=== PATIENT | female | born 1950 | race Caucasian/White ===

== ENCOUNTER → 2017-01-29 | Outpatient (CLI) | payer OTHER ==
--- NOTE | 2017-01-30 08:09 | MR ---
EXAMINATION TYPE: MR foot RT wo/w con DATE OF EXAM: 01/29/2017 COMPARISON: NONE HISTORY: Right Ankle Pain and Swelling for 2 years per patient, Lateral side swelling/lump marked CONTRAST: Standard multiplanar, multisequence MRI departmental protocol utilizing 15 mL intravenous MultiHance gadolinium contrast. FINDINGS: Exam is noted suboptimal as is ordered as MRI foot study but area of clinical concern is at level of distal fibular diaphysis in the right ankle. Vitamin E marker is placed at level of clinical concern lateral aspect posteriorly on coronal image 3 6 and axial image 22. This is at level of the peroneus tendons. Peroneus tendons are intact without a bnormal signal or thickening identified. At this level no worrisome solid or cystic mass or fluid col lection is seen. Visualized Achilles tendon is intact. Visualized flexor tendons posterior medially are intact and fel t within normal limits. Visualized extensor tendons anteriorly are intact. Ankle mortise symmetry is maintained. No significant soft tissue swelling is seen. There is small posterior tibiotalar joint effusion. Normal sinus tarsi fat is seen. Hindfoot articula tions are maintained. No suspicious edema is seen. No suspicious enhancement is noted. Midfoot and forefoot structures show satisfactory alignment. There is some flexion in the toes noted. There is slight hallux valgus positioning first metatarsophalangeal joint. A Martínez's toe is present . IMPRESSION: Unremarkable study, no significant finding is seen to account for patient's symptoms
== END | disposition home or self-care (01) ==
LOC: RADMRIMAIN 19:53
PROVIDERS: ATTEND Family Medicine
DX: R22.41 Localized swelling, mass and lump, right lower limb (principal)
CPT/HCPCS: 73720; A9577

== ENCOUNTER → 2017-02-25 | Outpatient (CLI) | payer OTHER ==
--- NOTE | 2017-02-27 00:03 | MR ---
EXAMINATION TYPE: MR wrist LT wo con DATE OF EXAM: 02/25/2017 COMPARISON: NONE HISTORY: LOCALIZIED SWELLING MASS AND LUMP Standard multiplanar, multisequence MRI departmental protocol Multiplanar, multisequence images of the left wrist were acquired. FINDINGS: There are small millimeter sized areas of fluid signal in the mid capitate and proximal yaron ate on the T2-weighted images. There is a mild wrist joint effusion. There is narrowing of the radioc arpal joint space. There is intact flexor and extensor tendons of the wrist. I see no fracture line. There is no evidenc e of avascular necrosis. Distal radius and ulna appear intact. There is a 1 cm area of minimal soft t issue edema on the dorsum of the carpus posterior to the lunate and capitate. There is no sign of sof t tissue mass. IMPRESSION: Mild osteoarthritis at the radiocarpal joint. Wrist joint effusion. Small degenerative cysts in the c apitate and lunate. No fracture seen. Mild osteoarthritis at the first carpometacarpal joint. Minimal soft tissue edema on the dorsum of the carpus.
== END | disposition home or self-care (01) ==
LOC: RADMRIMAIN 16:33
PROVIDERS: ATTEND Physician Assistant Medical
DX: M19.032 Primary osteoarthritis, left wrist (principal); M85.68 Other cyst of bone, other site

== ENCOUNTER → 2017-03-12 | Outpatient (CLI) | payer OTHER ==
[2017-03-12 09:17] LABS: Blood Urea Nitrogen 21 mg/dL (7-17); Non-African American GFR(MDRD) >60 (>60 ml/min/1.73 sqM)
--- NOTE | 2017-03-12 10:12 | CT ---
EXAMINATION TYPE: CT brain wo/w con DATE OF EXAM: 03/12/2017 COMPARISON: NONE HISTORY: [place] CT DLP: 2035.8 mGycm Automated exposure control for dose reduction was used. CONTRAST: CT scan of the head is performed without and with IV Contrast, patient injected with 100 mL of Omnipa que 300. FINDINGS: Noncontrast images show no acute intracranial hemorrhage or midline shift. Postcontrast images show n o suspicious enhancing intraparenchymal mass. The ventricles and sulci are within normal limits in s ize. There is dependent air-fluid level with mild mucosal thickening in the left maxillary sinus. The re is probably opacity filling more than half of the right sphenoid sinus. Mild mucosal thickening in left sphenoid sinus is present. Remainder paranasal sinuses are clear. The globes are intact bilater ally, right lens is somewhat more thinned . IMPRESSION: 1. No acute intracranial hemorrhage or midline shift. No suspicious enhancing intraparenchymal mass i s identified. 2. Acute on chronic paranasal sinus disease suspected as detailed above.
== END | disposition home or self-care (01) ==
LOC: RADCTMAIN 08:38
PROVIDERS: ATTEND Family Medicine
DX: R51 Headache (principal)
CPT/HCPCS: 82565; 84520; 70470; 36415; Q9967

== ENCOUNTER → 2017-04-02 | Outpatient (CLI) | payer OTHER ==
--- NOTE | 2017-04-23 08:33 | MM ---
Reason for exam: screening (asymptomatic). Last mammogram was performed 1 year and 5 months ago. History: Patient is postmenopausal. Family history of breast cancer. 2 benign excisional biopsies of the right breast. Physical Findings: A clinical breast exam by your physician is recommended on an annual basis and results should be correlated with mammographic findings. MG Screening Mammo w CAD Bilateral CC and MLO view(s) were taken. Prior study comparison: November 16, 2015, mammogram, performed at [facility]. November 09, 2015, mammogram, performed at [facility]. October 14, 2014, mammogram, performed at [facility]. Finding #1: There is a 10 mm equal density (isodense), oval mass. Finding #2: There are typically benign calcifications in both breasts. Previous biopsy markers bilaterally. ASSESSMENT: Incomplete: need additional imaging evaluation, BI-RAD 0 RECOMMENDATION: Special view mammogram and ultrasound of the right breast. [facility] will attempt to contact patient to return for supplemental views and ultrasound.
== END | disposition home or self-care (01) ==
LOC: RADMAMWWP 13:15
PROVIDERS: ATTEND Family Medicine
DX: Z12.31 Encounter for screening mammogram for malignant neoplasm of breast (principal)

== ENCOUNTER → 2017-04-25 | Outpatient (CLI) | payer OTHER ==
--- NOTE | 2017-04-26 07:37 | MM ---
Reason for exam: additional evaluation requested from abnormal screening. Last mammogram was performed 1 month ago. History: Patient is postmenopausal. Family history of breast cancer. 2 benign excisional biopsies of the right breast. Physical Findings: Nurse did not find any significant physical abnormalities on exam. MG Work Up Mamm w CAD RT Spot compression CC, spot compression MLO, and LM view(s) were taken of the right breast. Prior study comparison: April 02, 2017, bilateral MG screening mammo w CAD. November 16, 2015, mammogram, performed at [facility]. Finding: There is a 10 mm circumscribed oval mass in the upper outer quadrant, posterior position of the right breast. These results were verbally communicated with the patient and result sheet given to the patient on 04/25/17. ASSESSMENT: Incomplete: need additional imaging evaluation, BI-RAD 0 RECOMMENDATION: Ultrasound of the right breast.
--- NOTE | 2017-04-26 07:43 | USB ---
Reason for exam: additional evaluation requested from abnormal screening. History: Patient is postmenopausal. Family history of breast cancer. 2 benign excisional biopsies of the right breast. US Breast Workup Limited RT Right breast ultrasound demonstrates a 11 x 5 x 9mm lymph node at 10 o'clock with fatty hilum and a 2mm shadowing calcification at 11 o'clock. These results were verbally communicated with the patient and result sheet given to the patient on 04/25/17. ASSESSMENT: Benign, BI-RAD 2 RECOMMENDATION: Return to routine screening mammogram schedule for both breasts.
== END ==
LOC: RADMAMWWP 14:07
PROVIDERS: ATTEND Family Medicine
DX: R92.8 Other abnormal and inconclusive findings on diagnostic imaging of breast (principal)
CPT/HCPCS: 76642; G0206

== ENCOUNTER → 2017-06-26 | Outpatient (CLI) | payer OTHER ==
--- NOTE | 2017-06-26 14:09 | MR ---
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 Headache with neck pain for 23 years caus ing pain or weakness into left arm and fingers with history of prior surgery per patient. TECHNIQUE: Multiplanar, multisequence imaging of the cervical spine is performed without and with IV contrast, 8 cc of gadolinium was given intravenously. COMPARISON: None. FINDINGS: Sagittal images of the cervical spine show the craniocervical junction to appear within nor mal limits. The cervical and upper thoracic spinal cord is normal in course, caliber, and signal. V ertebral alignment is anatomic. The vertebral body heights are normal. There are some ossific fusi on of C5-C6 vertebra. There is mild disc space narrowing C6-C7 level. Posterior disc herniations are seen effacing anterior thecal sac C3-C4, C4-C5, and C6-C7 levels on sagittal images. The bone marrow signal intensity is within normal limits. No suspicious enhancement is seen. Mild anterior spurring a nterior inferior C4, C6, and C7-T1 disc space levels is noted. Axial images show the C2-C3 level to appear within normal limits. Axial images at C3-C4 level shows central disc protrusion effacing anterior thecal sac nearly up to v entral surface of spinal cord on axial image 43. There are left-sided uncovertebral facet degenerativ e changes contributing to moderate left-sided neural foraminal narrowing most prominent superiorly. Axial images at C4-C5 level shows central disc protrusion effacing anterior thecal sac up to ventral surface of spinal cord with uncovertebral facet degenerative changes bilaterally causing mild left-si ded neural foraminal narrowing. Right-sided neural foramen is patent. Axial images at C5-C6 level show ossified disc space, bilateral neural foramina are patent. Spinal ca nal is preserved. Axial images at C6-C7 level show broad-based right paracentral disc protrusion effacing anterior thec al sac up to ventral surface of spinal cord and causing mild bilateral neural foraminal narrowing. Axial images at C7-T1 level are felt within normal limits. IMPRESSION: Ossific fusion C5-C6 may be product of prior surgery noted by patient. Satisfactory align ment is seen. Multilevel degenerative changes are seen as detailed above most prominent at C3-C4, C4- C5, and C6-C7 levels.
== END | disposition home or self-care (01) ==
LOC: RADMRIMAIN 11:20
PROVIDERS: ATTEND Psychiatry & Neurology Neurology
DX: M47.812 Spondylosis without myelopathy or radiculopathy, cervical region (principal); Z98.1 Arthrodesis status
CPT/HCPCS: 72156; A9581

== ENCOUNTER → 2018-05-07 | Outpatient (CLI) | payer OTHER ==
--- NOTE | 2018-05-09 12:58 | MM ---
Reason for exam: screening (asymptomatic). Last mammogram was performed 1 year ago. History: Patient is postmenopausal. Family history of breast cancer in grandmother. 2 benign excisional biopsies of the right breast. Physical Findings: A clinical breast exam by your physician is recommended on an annual basis and results should be correlated with mammographic findings. MG Screening Mammo w CAD Bilateral CC and MLO view(s) were taken. Prior study comparison: April 25, 2017, right breast MG work up mamm w CAD RT. April 02, 2017, bilateral MG screening mammo w CAD. There are scattered fibroglandular densities. Focal asymmetry left upper outer quadrant, may contain calcifications, stable from 2015. ASSESSMENT: Benign, BI-RAD 2 RECOMMENDATION: Routine screening mammogram of both breasts in 1 year.
== END | disposition home or self-care (01) ==
LOC: RADMAMWWP 09:38
DX: Z12.31 Encounter for screening mammogram for malignant neoplasm of breast (principal)
CPT/HCPCS: 77067

== ENCOUNTER 2018-10-03 10:37 | Emergency (ER) | payer MEDICARE, OTHER ==
[2018-10-03 10:51] VITALS: BP 135/67; PULSE 65; RESP 20; TEMP 97.5
--- NOTE | 2018-10-03 11:46 | XR ---
EXAMINATION TYPE: XR hand complete LT DATE OF EXAM: 10/03/2018 COMPARISON: None HISTORY: Pain from fall TECHNIQUE: Three-view left hand FINDINGS: No acute fractures are evident. There is an ossification lateral to the trapezium. An avuls ion should be considered with a possible donor site from the trapezium. No additional areas suspiciou s for fracture are evident. Remaining joint spaces are preserved. IMPRESSION: 1. Clinical correlation recommended for avulsion at the trapezium first carpal metacarpal junction.
--- NOTE | 2018-10-03 11:47 | XR ---
EXAMINATION TYPE: XR wrist complete LT DATE OF EXAM: 10/03/2018 COMPARISON: None HISTORY: Fall, pain TECHNIQUE: 4 view left wrist FINDINGS: There are small ossifications at the first carpometacarpal junction. There may be a donor s ite extending from the lateral trapezium. Cortical margins however appear smooth. This may be an old avulsion. No additional areas suspicious for fracture are evident. Joint spaces are preserved. Soft tissues marley ear normal. Follow-up exams can be performed 7-10 days from acute trauma for continued pain. IMPRESSION: 1. Suspected old avulsion from the lateral trapezium. Correlate with location of patient's pain.
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
== END 2018-10-03 13:10 | disposition home or self-care (01) ==
LOC: EC 10:37
DX: S62.172A Displaced fracture of trapezium [larger multangular], left wrist, initial encounter for closed fracture (principal); E78.5 Hyperlipidemia, unspecified; I10 Essential (primary) hypertension; M19.90 Unspecified osteoarthritis, unspecified site; Z87.891 Personal history of nicotine dependence; Z79.82 Long term (current) use of aspirin; Z79.899 Other long term (current) drug therapy; Z96.651 Presence of right artificial knee joint; Z98.1 Arthrodesis status; W00.0XXA Fall on same level due to ice and snow, initial encounter
CPT/HCPCS: 29125; 99283

== ENCOUNTER → 2019-01-20 | Outpatient (CLI) | payer OTHER ==
--- NOTE | 2019-01-23 13:25 | MR ---
EXAMINATION TYPE: MR shoulder LT wo con DATE OF EXAM: 01/20/2019 COMPARISON: Prior shoulder MRI 09/07/2017 from outside institution HISTORY: Lt shoulder pain TECHNIQUE: Multiplanar, multisequence imaging of the left shoulder is performed without contrast. FINDINGS: Rotator Cuff: Findings are similar with tendinopathy within the rotator cuff, abnormal increased sign al in T2-weighted sequences compatible with intrasubstance tear of a portion of the supraspinatus and infraspinatus tendon. The partial full-thickness tear in the anterior supraspinatus tendon is again seen. Small posterior full-thickness tear is suspected of the infraspinatus tendon. Conjoined tendon is attenuated. Acromioclavicular Joint: Arthropathy changes are again noted. Glenohumeral Joint: Intact Labrum: No evident labral tear. Biceps Tendon: The long head of biceps is in normal location within bicipital groove. Small amount of fluid is again seen along the long head of biceps tendon Bone marrow signal: Suspect susceptibility artifact within the humeral head due to previous screw steph cement, there is a tract present. Other: There is fluid in the subacromial subdeltoid bursa. IMPRESSION: There hasn't been some progression in the tendinopathy, suspect a small posterior full-thickness tear of the infraspinatus tendon, persistent intrasubstance abnormal signal and thickening
== END | disposition home or self-care (01) ==
LOC: RADMRIMAIN 08:26
PROVIDERS: ATTEND Orthopaedic Surgery
DX: M67.814 Other specified disorders of tendon, left shoulder (principal); M25.512 Pain in left shoulder

== ENCOUNTER 2019-03-06 06:16 | Day surgery (SDC) | payer OTHER ==
[2019-03-03 16:07] VITALS: BMI 34.3
--- NOTE | 2019-03-05 09:28 | HP ---
HISTORY AND PHYSICAL CHIEF COMPLAINT: Left shoulder pain. HISTORY OF PRESENT ILLNESS: The patient is a 68-year-old, right-hand dominant, retired female who presents with progressive left shoulder pain, worsening over the past several months. She denies any new injury. She is having pain with overhead use and at night. She has tried medications and rest without much relief. She has had 2 previous surgeries in 2017 and 2018 involving the left shoulder. PAST MEDICAL HISTORY: Significant for depression, diabetes, hypercholesterolemia, and hypertension along with arthritis. PAST SURGICAL HISTORY: Significant for hysterectomy, left rotator cuff repair, and spine surgery along with previous joint replacement. CURRENT MEDICATIONS: 1. Atenolol. 2. Baclofen. 3. Ibuprofen. 4. Lyrica. 5. Kyle. 6. Omeprazole. 7. Simvastatin. ALLERGIES: She denies drug allergies. FAMILY HISTORY: Significant for cancer. SOCIAL HISTORY: Significant for previous tobacco use. REVIEW OF SYSTEMS: Sixteen point review of systems otherwise reviewed and is noncontributory. PHYSICAL EXAMINATION: On examination, the patient is approximately 5 feet 4 inches, 200 pounds of endomorphic habitus. HEENT exam is nonfocal. Neck is supple. She is tender about the anterior subacromial space. She has moderate subacromial crepitus. Active range of motion of the left shoulder forward elevation 140 degrees, external rotation with arm at side 50 degrees, internal rotation to L2. Motor strength is 5 minus over 5 for external rotation with arm to side, 4/5 for abduction. Impingement test, Neer test and Speed tests are positive. Her distal neurovascular exam appears intact in the left upper extremity. Previous MRI of the left shoulder shows a full-thickness tear involving the anterior aspect of the supraspinatus. IMPRESSION: 1. Left symptomatic rotator cuff tear. 2. History of cervical fusion. 3. Previous left shoulder arthroscopy. RECOMMENDATIONS: I talked to the patient at length regarding her condition and treatment options. At this point, she remains quite symptomatic despite conservative measures. After thorough discussion, she opts to proceed with surgery. We will plan to proceed with arthroscopic evaluation with possible rotator cuff repair and biceps tenotomy. We will likely perform that as an outpatient procedure. Risks and benefits were discussed at length in layman's terms. MMODL / IJN: [id number] /
[~2019-03-06 06:16] MED LIST: DEXAMETHASONE SOD PHOSPHATE 10 MG/ML 1 ML VIAL IV ONE; HYDROmorphone 0.5 MG/0.5 ML SYRINGE IVP PRN; LACTATED RINGERS 1,000 ML IV SCH; LIDOCAINE 1% 20 ML VIAL (10MG/ML) FOR IV START INTRADERMA PRN; ONDANSETRON 4 MG/2 ML VIAL IVP ONE; ONDANSETRON 4 MG/2 ML VIAL IVP PRN
[2019-03-06] MEDS ORDERED: MIDAZOLAM (PF) 2 MG/2 ML VIAL IV ONE (07:22)
--- NOTE | 2019-03-06 07:46 | P.ANPRN ---
Procedure Note - Anesthesia - Nerve Block Performed Left Interscalene Single Date of Procedure: 03/06/19 Procedure Start Time: Procedure Stop Time: Location of Patient Procedure: PreOp Indication: Acute Post-Operative Pain, Analgesia, Requested by physician Sedation Type: Sedate with meaningful contact maintained Preparation: Sterile Prep Position: Supine Catheter: None Needle Types: Pajunk Needle Gauge: 21 Technique: Ultrasound Injectate: 0.5% Ropivacaine (see comment for volume) (20cc) Blood Aspirated: No Pain Paresthesia on Injection Noted: No Resistance on Injection: Normal Events: Uneventful and Well Tolerated
[2019-03-06] MEDS ORDERED: fentaNYL (PF) 50 MCG/ML 2 ML AMP ONE (07:55)
[2019-03-06] MEDS ORDERED: PHENYLEPHRINE-0.9% NACL SYG 1 MG/10 ML SYRINGE ONE (07:55)
[2019-03-06] MEDS ORDERED: MIDAZOLAM 2 MG/2 ML VIAL ONE (07:55)
[2019-03-06] MEDS ORDERED: LIDOCAINE 1% INJ 10MG/ML (20 ML MDV) ONE (07:55)
[2019-03-06] MEDS ORDERED: PROPOFOL 10 MG/ML 20 ML VIAL IV ONE (07:55)
[2019-03-06] MEDS ORDERED: ROPIVACAINE 5 MG/ML 30 ML VIAL ONE (07:55)
[2019-03-06] MEDS ORDERED: ePHEDrine SULFATE/0.9% NACL/PF 50 MG/5 ML SYRINGE IV ONE (07:55)
[2019-03-06] MEDS ORDERED: SUCCINYLCHOLINE CHLORIDE 100 MG/5 ML SYR IV ONE (07:55)
[2019-03-06] MEDS ORDERED: EPINEPHrine (PF) 1 ML in SODIUM CHLORIDE 0.9% IRRIGATIO 3,000 ML IRRIGATION ONE ×8 (08:20)
--- NOTE | 2019-03-06 09:22 | P.OP ---
Date of Procedure: 03/06/19 Preoperative Diagnosis: Left rotator cuff tearrecurrent Postoperative Diagnosis: 1 cm left rotator cuff tear, acromioclavicular joint synovitis, high-grade partial-thickness tear intra-articular portion long head of biceps Procedure(s) Performed: Left shoulder arthroscopic subacromial decompression/biceps tenotomy/distal clavicular resection/rotator cuff repair Implants: Arthrex 5.5 mm swivel lock anchor 1 Anesthesia: ROB regional Surgeon: Sudhir aGston [employer] Heaterman #1: Bob Ramirez Estimated Blood Loss (ml): 10 Pathology: none sent Condition: stable Disposition: PACU Indications for Procedure: The patient's a 68-year-old female who presents with progressive left shoulder pain despite conservative measures. A discussion of the risks and benefits of operative intervention versus continued conservative measures was made with patient. She opted to proceed with surgery. Operative risks to include infection, neurovascular injury, development of blood clots, possible incomplete resolution of symptoms, possible worsening symptoms and need for subsequent procedures was discussed. Informed consent was obtained. Operative Findings: As below Description of Procedure: The patient was brought to the operating room, and after induction of general anesthesia was placed in a beachchair position. A preoperative interscalene block was placed for postoperative analgesia. I examined the left shoulder. There was moderate stiffness with restricted external rotation and forward elevation. The left upper extremity was prepped and draped in normal fashion. The bony outlines the acromion, distal clavicle, and coracoid process were outlined with a skin marker. The glenohumeral joint was inflated with 50 mL of saline utilizing a spinal needle from posterior approach. A posterior portal was made through a 5 mm skin incision 1 cm medial and inferior to the posterior lateral border time. A blunt trocar was used to easily into the joint. Diagnostic arthroscopy was performed. An anterior portal was made just lateral to the coracoid process entering the joint above the subscapularis tendon. The subscapularis tendon appeared to be intact. Anterior labrum was intact. The inferior recess was inspected. The posterior labrum was intact. Diffuse grade 2/3 chondral changes were noted involving the humeral head and glenoid surface. There was a high-grade partial-thickness tear of the long head of the biceps involving interarticular portion. It was elected to proceed with release at this point. This was released from the superior labrum with electrocautery and was allowed to retract to the bicipital groove. On inspection the rotator cuff a full-thickness tear involving the anterior aspect the supraspinatus was noted. A lateral portal was made 2 centimeters inferior to the anterior lateral border of the acromion. The soft tissue on the undersurface of the acromion was debrided with a motorized shaver and electrocautery clearly defining the anterior medial and lateral borders as well as the distal clavicle. An anterior inferior acromioplasty was performed with a motorized snehal starting anterolateral, then extending this posteriorly, then extending this medially. I converted to a flat acromion and this was verified in the posterior and lateral viewing portals. The distal 5 mm of the clavicle was resected utilizing a motorized bur. The rotator cuff was easily mobilized back to the greater tuberosity. A previously placed suture anchor was present. The greater tuberosity was lightly decorticating with a shaver down to a bleeding bony surface. #2 fiber tape was then placed in the rotator cuff utilizing a scorpion suture passer. I planned on speed fix type fixation. A lateral anchor was then placed after appropriate tensioning the sutures. Good purchase was obtained. These fiber tapes were then passed the rotator cuff with a scorpion suture passer. Final arthroscopic view showed adequate compression at the footprint. The arthroscope was then removed. The portals were closed with simple 3-0 nylon sutures. A sterile dressing was applied in addition to a sling. The patient was then awoken from general anesthesia and transferred to recovery room in good condition. Blood loss was estimated at 10 mL. No complications were incurred. Sponge and needle counts were correct in the case. Son WHITTINGTON assisted and the major components of the case to include arm positioning, anchor placement, and rotator cuff repair.
[2019-03-06 09:32] VITALS: TEMP 96.9
[2019-03-06 10:30] VITALS: RESP 18
[2019-03-06 10:50] VITALS: PULSE 80
[2019-03-06 11:08] VITALS: BP 147/78
== END 2019-03-06 11:09 | disposition home or self-care (01) ==
LOC: OR 06:16
PROVIDERS: ATTEND Orthopaedic Surgery
DX: M75.122 Complete rotator cuff tear or rupture of left shoulder, not specified as traumatic (principal); M65.812 Other synovitis and tenosynovitis, left shoulder; S46.112A Strain of muscle, fascia and tendon of long head of biceps, left arm, initial encounter; X58.XXXA Exposure to other specified factors, initial encounter; F32.9 Major depressive disorder, single episode, unspecified; E78.00 Pure hypercholesterolemia, unspecified; E78.5 Hyperlipidemia, unspecified; M19.90 Unspecified osteoarthritis, unspecified site; I10 Essential (primary) hypertension; E11.9 Type 2 diabetes mellitus without complications; K21.9 Gastro-esophageal reflux disease without esophagitis; G43.909 Migraine, unspecified, not intractable, without status migrainosus; E66.9 Obesity, unspecified; Z68.34 Body mass index [BMI] 34.0-34.9, adult; Z79.891 Long term (current) use of opiate analgesic; Z79.899 Other long term (current) drug therapy; Z79.1 Long term (current) use of non-steroidal anti-inflammatories (NSAID); Z98.1 Arthrodesis status; Z96.60 Presence of unspecified orthopedic joint implant; Z98.41 Cataract extraction status, right eye; Z90.710 Acquired absence of both cervix and uterus; Z98.890 Other specified postprocedural states; Z87.891 Personal history of nicotine dependence; Z80.9 Family history of malignant neoplasm, unspecified
CPT/HCPCS: 64415; 29826; 29827; 29824; C1713 ×2; C1894; J2250 ×2; J1100; J0690; J2405; J0171; J2001; J3010; J2795; J2370; J0330; J2704

== ENCOUNTER → 2019-07-28 | Outpatient (CLI) | payer OTHER ==
--- NOTE | 2019-07-30 13:49 | MM ---
Reason for exam: screening (asymptomatic). Last mammogram was performed 1 year and 3 months ago. History: Patient is postmenopausal. Family history of breast cancer in grandmother. 2 benign excisional biopsies of the right breast. Physical Findings: A clinical breast exam by your physician is recommended on an annual basis and results should be correlated with mammographic findings. MG Screening Mammo w CAD Bilateral CC and MLO view(s) were taken. Prior study comparison: May 07, 2018, bilateral MG screening mammo w CAD. April 02, 2017, bilateral MG screening mammo w CAD. There are scattered fibroglandular densities. No significant changes when compared with prior studies. ASSESSMENT: Benign, BI-RAD 2 RECOMMENDATION: Routine screening mammogram of both breasts in 1 year.
== END | disposition home or self-care (01) ==
LOC: RADMAMWWP 14:18
DX: Z12.31 Encounter for screening mammogram for malignant neoplasm of breast (principal)
CPT/HCPCS: 77067

== ENCOUNTER → 2020-06-03 | Outpatient (CLI) | payer OTHER ==
--- NOTE | 2020-06-05 09:32 | MR ---
EXAMINATION TYPE: MR thoracic spine wo con DATE OF EXAM: 06/03/2020 COMPARISON: NONE HISTORY: Thoracic spine pain. TECHNIQUE: Multiplanar, multisequence imaging of thoracic spine is performed without contrast FINDINGS: There is artifact from surgical hardware presumed at C6-C7 level. Spinal cord shows normal ovoid 4 mm focus craniocaudal dimension at mid T6 level sagittal image 10. Vertebral body heights a nd alignment are satisfactory. Disc space heights fairly well maintained. Mild to moderate multileve l anterior spurring. Bone marrow signal intensity preserved. There is suspected disc herniation effac es anterior thecal sac at C6-C7 level sagittal image 9. Multilevel tiny posterior disc herniations mi nimally efface the anterior thecal sac for reference sagittal image 9 at T2-T3 and T3-T4 level. Heter ogeneous Modic type II endplate changes noted at T10-T11 level greater right of midline Review of the axial images shows no additional significant large disc herniation or neural foraminal narrowing at any thoracic level. Nonspecific 1.1 cm nodularity left adrenal gland noted on axial imag e 2. Axial images do not include area of abnormal spinal cord signal IMPRESSION: Mild to moderate multilevel spurring. Small 4 mm focus of abnormal cord signal mid T6 lev el of uncertain etiology. Consider contrast-enhanced imaging to further evaluate.
== END | disposition home or self-care (01) ==
LOC: RADMRIMAIN 19:19
PROVIDERS: ATTEND Physician Assistant Medical
DX: M77.8 Other enthesopathies, not elsewhere classified (principal)
CPT/HCPCS: 72146

== ENCOUNTER → 2020-07-26 | Outpatient (CLI) | payer OTHER ==
--- NOTE | 2020-07-26 13:58 | MR ---
EXAMINATION TYPE: MR thoracic spine wo/w con DATE OF EXAM: 07/26/2020 COMPARISON: 06/03/2020 HISTORY: Mid back pain, abnormal MRI 06-03-20. CONTRAST: Performed utilizing 9 mL intravenous Gadavist gadolinium contrast. TECHNIQUE: Multiplanar, multiecho imaging on a 3.0 Shirley magnet is performed through the thoracic spi ne. There is a punctate hyperintensity in T2-weighted sequences T6 spinal cord. This is stable in appeara nce from prior study. No suspicious enhancement is evident following contrast administration. Vertebral body alignment is normal. Vertebral body heights are preserved. Disc heights are preserved. Disc hydration levels are preserved. No spinal canal stenosis is evident. On manager hi images there appears be some severe spinal canal stenosis C3-4 level. Consider MRI evaluatio n. IMPRESSIONS: 1. Punctate hyperintensity within the spinal cord posterior to the T6 level. No enhancement is eviden t. Monitoring is recommended. 2. Appearance of severe stenosis within the upper cervical spine C3-4 level. Consider MRI cervical sp ine
== END | disposition home or self-care (01) ==
LOC: RADMRIMAIN 11:53
DX: R93.7 Abnormal findings on diagnostic imaging of other parts of musculoskeletal system (principal); M54.6 Pain in thoracic spine
CPT/HCPCS: 72157; A9585

== ENCOUNTER 2020-09-01 07:59 | Day surgery (SDC) | payer OTHER ==
[2020-08-31 09:40] VITALS: BMI 33.5
[~2020-09-01 07:59] MED LIST changes: -DEXAMETHASONE SOD PHOSPHATE 10 MG/ML 1 ML VIAL IV ONE; -HYDROmorphone 0.5 MG/0.5 ML SYRINGE IVP PRN; +LIDOCAINE 1% (10MG/ML) FOR IV START INTRADERMA PRN; -LIDOCAINE 1% 20 ML VIAL (10MG/ML) FOR IV START INTRADERMA PRN; -ONDANSETRON 4 MG/2 ML VIAL IVP ONE; -ONDANSETRON 4 MG/2 ML VIAL IVP PRN
[2020-09-01 09:02] VITALS: TEMP 97.9
[2020-09-01] MEDS ORDERED: LIDOCAINE 1% INJ 10MG/ML (20 ML MDV) ONE (09:06)
[2020-09-01] MEDS ORDERED: PROPOFOL 10 MG/ML 20 ML VIAL IV ONE (09:06)
[2020-09-01 09:07] LABS: Glucose,Whole Blood 114 mg/dL (75-99)
--- NOTE | 2020-09-01 09:41 | P.PCN ---
Date of Procedure: 09/01/20 Description of Procedure: BRIEF HISTORY: Patient is a 69-year-old female presenting for outpatient colonoscopy for evaluation of screening for malignant neoplasm of the colon. She does report prior colonoscopies in the past and believes her prior colonoscopy was 5 years ago with polypectomy at that time. She denies any change in bowel habits, blood per rectum or abdominal pain. No family history of colon cancer. PROCEDURE PERFORMED: Colonoscopy with polypectomy. PREOPERATIVE DIAGNOSIS: Screening for malignant neoplasm colon, patient reports last colonoscopy was 5 years ago with polypectomy. ESTIMATED BLOOD LOSS: Minimal. IV sedation per Anesthesia. PROCEDURE: After informed consent was obtained, the patient, was brought into the endoscopy unit. IV sedation was administered by Anesthesia under continuous monitoring. Digital rectal examination was normal. Initially the Olympus CF-190 flexible video colonoscope was then inserted in the rectum, gradually advanced into the cecum without any difficulty. Careful examination was performed as the scope was gradually being withdrawn. Ileocecal valve and the appendiceal orifice were visualized and appeared normal. Prep was excellent. Mucosa of the cecum, ascending colon, transverse colon, descending colon, sigmoid colon, and rectum appeared normal, with a few scattered sigmoid diverticula noted. A diminutive 2 mm rectal polyp was removed with cold forcep polypectomy. Retroflexion was performed in the rectum and no lesions were seen, low-grade internal hemorrhoids. The patient tolerated the procedure well. IMPRESSION: Diminutive rectal polyp removed cold forcep polypectomy. Mild sigmoid diverticulosis. RECOMMENDATIONS: Findings of this examination were discussed with the patient .and her family. Okay to resume diet. Okay to resume medications. Await pathology from polypectomy. Recommend repeat colonoscopy in 5 years for history of colon polyps.
[2020-09-01 09:52] VITALS: BP 123/71; PULSE 81; RESP 16
== END 2020-09-01 10:13 | disposition home or self-care (01) ==
LOC: ORWHC2ENDO 07:59
PROVIDERS: ATTEND Internal Medicine
DX: Z12.11 Encounter for screening for malignant neoplasm of colon (principal); K62.1 Rectal polyp; K57.30 Diverticulosis of large intestine without perforation or abscess without bleeding; K64.8 Other hemorrhoids; I10 Essential (primary) hypertension; E78.5 Hyperlipidemia, unspecified; E11.9 Type 2 diabetes mellitus without complications; K21.9 Gastro-esophageal reflux disease without esophagitis; Z86.010 Personal history of colon polyps; Z98.890 Other specified postprocedural states; Z87.891 Personal history of nicotine dependence; Z79.899 Other long term (current) drug therapy; Z79.1 Long term (current) use of non-steroidal anti-inflammatories (NSAID); Z90.710 Acquired absence of both cervix and uterus; Z97.2 Presence of dental prosthetic device (complete) (partial)
CPT/HCPCS: 88305; 45380; J2001; J2704

== ENCOUNTER → 2020-10-05 | Outpatient (CLI) | payer OTHER ==
--- NOTE | 2020-10-07 13:31 | MM ---
Reason for exam: screening (asymptomatic). Last mammogram was performed 1 year and 2 months ago. History: Patient is postmenopausal. Family history of breast cancer in grandmother. 2 benign excisional biopsies of the right breast. Physical Findings: A clinical breast exam by your physician is recommended on an annual basis and results should be correlated with mammographic findings. MG Screening Mammo w CAD Bilateral CC and MLO view(s) were taken. Prior study comparison: July 28, 2019, bilateral MG screening mammo w CAD. May 07, 2018, bilateral MG screening mammo w CAD. There are scattered fibroglandular densities. Stable benign calcifications. There is no discrete abnormality. No significant changes when compared with prior studies. ASSESSMENT: Benign, BI-RAD 2 RECOMMENDATION: Routine screening mammogram of both breasts in 1 year.
== END | disposition home or self-care (01) ==
LOC: RADMAMWWP 10:42
DX: Z12.31 Encounter for screening mammogram for malignant neoplasm of breast (principal)
CPT/HCPCS: 77067

== ENCOUNTER → 2021-05-11 | Outpatient (CLI) | payer OTHER ==
--- NOTE | 2021-05-11 14:29 | MR ---
EXAMINATION TYPE: MR lumbar spine wo con DATE OF EXAM: 05/11/2021 1:24 PM COMPARISON: NONE HISTORY: Low back pain Multiplanar, MultiSpin echo imaging of the lumbar spine was performed. L1-L2: Normal disc appearance without desiccation. No herniation, protrusion or disc bulging. No ca nal stenosis is present. Foramina are patent bilaterally. L2-L3: Normal disc appearance without desiccation. No herniation, protrusion or disc bulging. No ca nal stenosis is present. Foramina are patent bilaterally. L3-L4: Normal disc appearance without desiccation. No herniation, protrusion or disc bulging. No ca nal stenosis is present. Foramina are patent bilaterally. L4-L5: Moderate disc desiccation with posterior disc bulge. Effacement ventral thecal sac. Hypertroph y of the ligamentum flavum and facet joint arthropathy resulting in mild central stenosis. Bilateral foraminal encroachment right greater than left. Grade 1 anterolisthesis L4 and L5 of 5 mm secondary t o facet joint arthropathy. L5-S1: Mild disc desiccation with minimal posterior disc bulge. No disc herniation or protrusion. No central stenosis or foraminal encroachment. Lumbar segments are intact. No paraspinal masses are identified. Conus medullaris has a normal appe arance. IMPRESSION: 1. Degenerative disc disease L4-5 and L5-S1. 2. Mild central stenosis L4-5.
== END | disposition home or self-care (01) ==
LOC: RADMRIMAIN 12:46
PROVIDERS: ATTEND Physician Assistant Medical
DX: M51.37 Other intervertebral disc degeneration, lumbosacral region (principal); M48.061 Spinal stenosis, lumbar region without neurogenic claudication
CPT/HCPCS: 72148

== ENCOUNTER → 2021-10-06 | Outpatient (CLI) | payer OTHER ==
--- NOTE | 2021-10-09 13:34 | MM ---
Reason for exam: screening (asymptomatic). Last mammogram was performed 1 year ago. History: Patient is postmenopausal. Family history of breast cancer in grandmother. 2 benign excisional biopsies of the right breast. Physical Findings: A clinical breast exam by your physician is recommended on an annual basis and results should be correlated with mammographic findings. MG Screening Mammo w CAD Bilateral CC and MLO view(s) were taken. Prior study comparison: October 05, 2020, bilateral MG screening mammo w CAD. July 28, 2019, bilateral MG screening mammo w CAD. There are scattered fibroglandular densities. No significant changes when compared with prior studies. ASSESSMENT: Benign, BI-RAD 2 RECOMMENDATION: Routine screening mammogram of both breasts in 1 year.
== END | disposition home or self-care (01) ==
LOC: RADMAMWWP 15:12
PROVIDERS: ATTEND Family Medicine
DX: Z12.31 Encounter for screening mammogram for malignant neoplasm of breast (principal); Z80.3 Family history of malignant neoplasm of breast; Z78.0 Asymptomatic menopausal state
CPT/HCPCS: 77067

== ENCOUNTER → 2021-11-09 | Outpatient (CLI) | payer OTHER ==
--- NOTE | 2021-11-09 19:34 | MR ---
EXAMINATION TYPE: MR brain wo/w con DATE OF EXAM: 11/09/2021 COMPARISON: NONE HISTORY: 71-year-old female I69.991 Stroke like symptoms, bilat hearing loss, Memory deficit TECHNIQUE: Multiplanar, multisequence images of the brain and brainstem were acquired before and aft er administration of 8.5 mL IV Gadavist. Diffusion weighted imaging is performed. FINDINGS: No evidence for acute infarction, hemorrhage, mass, mass effect, midline shift, herniation, effacemen t of basal cisterns, or extra-axial fluid collection. Mild generalized supratentorial volume loss with secondary mild prominence to the ventricular system. Major intracranial flow voids are intact. T2/FLAIR weighted sequences show moderate scattered burden of right white matter foci in the subcorti vaishali, deep white matter, and periventricular regions of both cerebral hemispheres. Some additional pat afshin changes is present in the bilateral paramedian yadira. Midline structures demonstrate normal morphology. The craniocervical junction is normal. Post contrast images demonstrate no evidence of pathologic enhancement. Dural venous sinuses are pat ent. There is mild to moderate mucosal thickening left maxillary sinus with small air-fluid level. Mild mu cosal thickening ethmoid air cells and left frontal sinus. Partial opacification of the right mastoid air cells. Some leftward nasal septal deviation. Globes are intact. IMPRESSION: 1. Mild generalized atrophy. Moderate scattered burden of chronic small vessel ischemic disease. No a cute intracranial body seen. No enhancing lesions. 2. Mild chronic pansinus disease. Given an air-fluid level within the left maxillary sinus, correlate for possible superimposed acute sinusitis. 3. Some trapped fluid in the right mastoid air cells. Correlate for any mastoid pain to exclude masto iditis.
== END | disposition home or self-care (01) ==
LOC: RADMRIMAIN 10:47
PROVIDERS: ATTEND Physician Assistant Medical
DX: I67.82 Cerebral ischemia (principal); I69.991 Dysphagia following unspecified cerebrovascular disease; J32.9 Chronic sinusitis, unspecified
CPT/HCPCS: 70553; A9585

== ENCOUNTER → 2022-01-05 | Outpatient (CLI) | payer OTHER | END | disposition home or self-care (01) | LOC: RADUSWWP 09:02 | PROVIDERS: ATTEND Family Medicine | DX: I73.89 Other specified peripheral vascular diseases (principal) | CPT/HCPCS: 93923 ==

== ENCOUNTER → 2022-04-12 | Outpatient (CLI) | payer OTHER | END | disposition home or self-care (01) | LOC: LABPAT 12:12 | PROVIDERS: ATTEND Orthopaedic Surgery | DX: Z01.818 Encounter for other preprocedural examination (principal); M17.11 Unilateral primary osteoarthritis, right knee | CPT/HCPCS: 87070 ==

== ENCOUNTER 2022-06-05 10:12 | Observation (INO) | payer OTHER ==
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
[~2022-06-05 10:12] MED LIST changes: +ACETAMINOPHEN TAB 500 MG TAB PO PRN; +HYDROmorphone 0.5 MG/0.5 ML SYRINGE IVP PRN; -LACTATED RINGERS 1,000 ML IV SCH; +MELOXICAM 7.5 MG TAB PO PRN; +ONDANSETRON 4 MG/2 ML VIAL IVP ONE; +TRANEXAMIC ACID IN NACL,ISO-OS 1,000 MG in SALINE 1 100ML.BAG IVPB PRN
[2022-06-05] MEDS ORDERED: LACTATED RINGERS 1,000 ML IV ONE ×2 (10:28→12:08)
[2022-06-05] MEDS ORDERED: FAMOTIDINE 20 MG/2 ML VIAL IVP ONE ×2 (10:45→10:50)
[2022-06-05 10:48] LABS: Glucose,Whole Blood 113 mg/dL (70-110)
[2022-06-05] MEDS ORDERED: MIDAZOLAM 2 MG/2 ML VIAL IVP ONE (10:56)
[2022-06-05] MEDS ORDERED: TRANEXAMIC ACID IN NACL,ISO-OS 1,000 MG/100 ML BAG ONE (11:12)
[2022-06-05] MEDS ORDERED: SODIUM CHLORIDE 0.9% (PF) 10 ML VIAL ONE (11:12)
[2022-06-05] MEDS ORDERED: ROPIVACAINE 5 MG/ML 30 ML VIAL ONE (11:12)
[2022-06-05] MEDS ORDERED: PHENYLEPHRINE-0.9% NACL SYG 1,000 MCG/10 ML SYRINGE ONE (11:12)
[2022-06-05] MEDS ORDERED: PROPOFOL 10 MG/ML 20 ML VIAL IV ONE (11:12)
[2022-06-05] MEDS ORDERED: ePHEDrine 50 MG/ML 1 ML VIAL ONE (11:12)
[2022-06-05] MEDS ORDERED: MIDAZOLAM 2 MG/2 ML VIAL ONE (11:12)
[2022-06-05] MEDS ORDERED: ceFAZolin 1,000 MG in SODIUM CHLORIDE 0.9% 1,000 ML IRRIGATION ONE (11:30)
[2022-06-05] MEDS ORDERED: ROPIVACAINE 0.2%-NS ON-Q PUMP 1,090 MG, EMPTY PAIN BALL 1 EACH MISCELLANE PRN (12:20)
--- NOTE | 2022-06-05 12:21 | P.ANPRN ---
Procedure Note - Anesthesia - Nerve Block Performed Right Adductor Canal Time Out Performed: Yes (:55) Date of Procedure: 06/05/22 Procedure Start Time: Procedure Stop Time: 11:04 Location of Patient: PreOp Indication: Acute Post-Operative Pain, Requested by Surgeon (Dr Gaston) Sedation Type: Sedate with meaningful contact maintained Preparation: Sterile Prep, Sterile Dressing Position: Supine Catheter: Indwelling Needle Types: Pajunk Needle Gauge: 21 Ultrasound used to visualize needle placement: Yes Ultrasound used to observe medication spread: Yes Injectate: 0.5% Ropivacaine (see comment for volume) (15cc) Blood Aspirated: No Pain Paresthesia on Injection Noted: No Resistance on Injection: Normal Image Stored and Saved: Yes Events: Uneventful and Well Tolerated
--- NOTE | 2022-06-05 12:23 | P.ANPRN ---
Procedure Note - Anesthesia - Nerve Block Performed Right iPack Time Out Performed: Yes Date of Procedure: 06/05/22 Procedure Start Time: 11:05 Procedure Stop Time: 11:11 Location of Patient: PreOp Indication: Acute Post-Operative Pain, Requested by Surgeon (Dr Gaston) Sedation Type: Sedate with meaningful contact maintained Preparation: Sterile Prep Position: Supine Catheter: None Needle Types: Pajunk Needle Gauge: 21 Ultrasound used to visualize needle placement: Yes Ultrasound used to observe medication spread: Yes Injectate: 0.5% Ropivacaine (see comment for volume) (15cc +5cc PF Normal saline) Blood Aspirated: No Pain Paresthesia on Injection Noted: No Resistance on Injection: Normal Image Stored and Saved: Yes Events: Uneventful and Well Tolerated
[2022-06-05] MEDS ORDERED: HYDROmorphone 0.5 MG/0.5 ML SYRINGE IVP PRN ×2 (13:01)
[2022-06-05] MEDS ORDERED: NALOXONE 0.4 MG/ML 1 ML VIAL IV PRN (13:01)
[2022-06-05] MEDS ORDERED: HYDROcodone/APAP 5-325MG 1 EACH TAB PO PRN (13:01)
--- NOTE | 2022-06-05 13:26 | P.OP ---
Date of Procedure: 06/05/22 Preoperative Diagnosis: Right knee severe tricompartment osteoarthrosis Retained hardware right knee Postoperative Diagnosis: Same Procedure(s) Performed: Right total knee arthroplastycementedcruciate retaining Removal of screw right proximal tibia Implants: Depuy Attune size 4 narrow cemented femoral component, size 3 cemented tibial component, 9 mm articular surface, 32 mm cemented patellar component. Anesthesia: [facility] Surgeon: Sudhir Gaston Muffler Tender #1: Ghassan Diego Estimated Blood Loss (ml): 50 Pathology: other (Bone fragments) Condition: stable Disposition: PACU Indications for Procedure: The patient is a 71-year-old female who presents with progressive right knee pain secondary to osteoarthrosis despite conservative A discussion of the risks and benefits of operative intervention versus continued conservative measures was made with the patient. She opted to proceed with surgery. Operative risks to include infection, neurovascular injury, development of blood clots, fracture, possible loosening/failure need for subsequent procedures was scuffed. I also discussed the need for removal of her previous hardware in the proximal tibia. Informed consent was obtained. Operative Findings: As below Description of Procedure: The patient was brought to the operating room, and after induction of spinal anesthesia the right lower extremity was prepped and draped in a normal fashion. The tourniquet was inflated to 270 mmHg. A longitudinal incision extending 3 finger breaths above the superior pole of the patella extending to the medial aspect the tibial tubercle was then made. The skin and subcutaneous tissues were divided sharply. Electrocautery was used for hemostasis. A medial parapatellar arthrotomy was then performed. The medial soft tissues to include the superficial and deep portions of the medial collateral ligament as well as the medial hamstring tendons were elevated subperiosteally. The proximal medial tibia osteophytes were carefully removed. The patella was everted. The knee was flexed. A portion of the retropatellar fat pad was excised sharply. The anterior cruciate ligament was sacrificed. A starting hole was made in the distal femur 1 cm anterior to the posterior cruciate origin. An intramedullary femoral guide was gently inserted planning on 5 valgus distal cut with 9 mm distal resection. The cutting block was pinned in place. The distal cut was then made. The posterior referencing sizing guide was utilized. 3 of external rotation was built into the system and verified off the trans- epicondylar axis and the posterior condyles. I felt size 4 narrow was most appropriate. The cutting block was pinned in place. The anterior, posterior, and chamfer cuts were then made. The bone fragments were removed. A sulcus cut was then made with the appropriate guide. The trial size 4 narrow femoral component was then placed and was fully seated. There was good anterior to posterior and medial to lateral fit. The distal peg holes were then drilled. The trial component was then removed. Attention was then paid towards preparing the proximal tibia. An extra medullary guide was utilized in line with the tibial shaft and second metatarsal distally. A 7 posterior slope was planned. I planned on 2 mm resection from the medial compartment. The cutting block was pinned in place. The proximal tibial cut was then made. The bone was removed in one fragment. The remnants of the medial and lateral menisci were excised the capsule junction with electrocautery. The tibia sized most appropriately at size 3. The posterior osteophytes off the distal femur were carefully removed with a curved osteotome. The trial tibial and femoral components were placed along with a 9 millimeters articular surface. I was able to obtain full flexion and extension with good stability with varus and valgus stress. After several flexion and extension cycles, the tibial rotation was marked with electrocautery in line with the medial one third of the tibial tubercle. Attention was then paid towards preparing the patella. A patella reamer was utilized taking this down to 14 mm of bone stock. A good flush cut was made. The patella sized most appropriately at 32 millimeters. The peg holes were then drilled. The trial component was placed. The knee was taken through a range of motion. I had good patellofemoral tracking with no hands technique. The trial components were then removed. The tibia was prepared in the appropriate rotation with appropriate drill and keel punch after removal of the proximal tibial screw. The flexion and extension gaps were checked and felt to be symmetric. The bony surfaces were prepared with pulsatile lavage and dried. The deep tibial component was then cemented in place and was fully seated. Excess cement was removed. The femoral component was cemented in place and was fully seated. Again excess cement was removed. The trial 9 millimeters surface was then inserted in the knee was put in full extension. The patella component was cemented in place. After the cement had sufficiently hardened, the knee was again taken through a range of motion. Again there was good stability in flexion and extension with varus and valgus stress. The trial articular surface was then removed. The final articular surface was placed and was impacted. Care was taken to avoid any soft tissue interposition. Pulsatile lavage was again utilized. The tourniquet was deflated with approximately 60 minutes total tourniquet time. There was minimal drainage therefore a deep drain was not placed. The medial parapatellar arthrotomy was then closed with #2 Ethibond suture. The subcutaneous tissues were reapproximated interrupted 2-0 Vicryl sutures. The skin was reapproximated with 3-0 subarticular strata fix suture. Skin tape and adhesive was applied. A sterile dressing was applied. The patient was then awoken from sedation and transferred to recovery room in good condition. Blood loss was estimated at 50 milliliters. No complications were incurred. Sponge and needle counts were correct at the end the case. Ghassan WHITTINGTON assisted during the major components this case to include exposure, bone resection, and implantation.
--- NOTE | 2022-06-05 13:44 | XR ---
EXAMINATION TYPE: XR knee limited RT DATE OF EXAM: 06/05/2022 1:38 PM INDICATION: Patient age:Female; 71 years old; Reason for study: Evaluation for Postop abnormality and alignment; [facility]. COMPARISON: Right knee radiograph 03/12/2022. TECHNIQUE: The Right knee(s) was examined in frontal and lateral projections. FINDINGS: Postsurgical changes from right total knee arthroplasty. Hardware appears intact with marley ropriate alignment. Additional fixation screw involving the proximal tibia. Interval removal of addit ional fixation screw from the proximal tibia. No acute fracture or dislocation. There is associated s oft tissue edema and gas identified. IMPRESSION: Postsurgical changes from right total knee arthroplasty. Hardware appears intact with appropriate ali gnment.
[2022-06-05] MEDS: LACTATED RINGERS 1,000 ML IV SCH (17:29)
[2022-06-05] MEDS ORDERED: FLUTICASONE 50MCG/SPRAY NASAL 16GM EA NOSTRIL PRN (17:55)
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
[2022-06-05] MEDS: HYDROcodone/APAP 7.5-325MG 1 EACH TAB PO PRN (18:57)
[2022-06-05] MEDS: traZODone HCL 50 MG TAB PO SCH (20:04)
[2022-06-05] MEDS: ATORVASTATIN 40 MG TAB PO SCH (20:04)
[2022-06-05] MEDS: SENNOSIDES-DOCUSATE SODIUM 1 EACH TAB PO SCH (20:04)
[2022-06-05] MEDS: DULoxetine HCL 30 MG CAPSULE.DR PO SCH (20:04)
[2022-06-05 22:31] LABS: Glucose,Whole Blood 174 mg/dL (70-110)
[2022-06-06] MEDS: HYDROcodone/APAP 7.5-325MG 1 EACH TAB PO PRN ×3 (04:40→20:18)
[2022-06-06] MEDS: LEVOTHYROXINE 25 MCG TAB PO SCH (05:19)
[2022-06-06 07:02] LABS: Glucose,Whole Blood 155 mg/dL (70-110)
[2022-06-06] MEDS: LACTATED RINGERS 1,000 ML IV SCH (08:19)
[2022-06-06] MEDS: VIT A,C & E-LUTEIN-MINERALS 1 EACH TAB PO SCH (08:52)
[2022-06-06] MEDS: ASPIRIN 81 MG PO SCH (08:52)
[2022-06-06] MEDS: MULTIVITAMINS, THERA 1 EACH TAB PO SCH (08:52)
[2022-06-06] MEDS: MAGNESIUM OXIDE 400 MG TAB PO SCH (08:52)
[2022-06-06] MEDS: DULoxetine HCL 60 MG CAPSULE.DR PO SCH (08:52)
[2022-06-06] MEDS: atenoloL 25 MG TAB PO SCH (08:52)
[2022-06-06] MEDS: RIVAROXABAN 10 MG TAB PO SCH (08:52)
[2022-06-06 08:58] LABS: Basophils # (A) 0.06 X 10*3/uL (0.00-0.10); Basophils % (A) 0.9 %; Eosinophils # (A) 0.07 X 10*3/uL (0.04-0.35); Eosinophils % (A) 1.1 %; HCT 34.1 % (37.2-46.3); HGB 10.2 g/dL (12.0-15.0); Immature Grans, Automated 0.2 %; Lymphocytes # (A) 1.64 X 10*3/uL (0.90-5.00); Lymphocytes % (A) 24.7 %; MCH 27.7 pg (27.0-32.0); MCHC 29.9 g/dL (32.0-37.0); MCV 92.7 fL (80.0-97.0); Mean Platelet Volume 11.5 fL (9.5-12.2); Monocytes # (A) 0.82 X 10*3/uL (0.20-1.00); Monocytes % (A) 12.4 %; NRBC Per 100 WBC 0 /100 WBCS (0.0-0.0); Neutrophils # (A) 4.03 X 10*3/uL (1.80-7.70); Neutrophils % (A) 60.7 %; Platelet Count 176 X 10*3/uL (140-440); RBC 3.68 X 10*6/uL (4.10-5.20); RDW 13.8 % (11.5-14.5); WBC 6.63 X 10*3/uL (4.50-10.00)
[2022-06-06] MEDS ORDERED: NON FORMULARY DRUG (Glucosamine Hcl/Chondroitin Su [Glucosamine-Chondroitin Cap] 1 EACH Ca PO SCH (09:00)
[2022-06-06] MEDS ORDERED: NON FORMULARY DRUG (Calcium/Magnesium/Zinc [Calcium-Magnesium-Zinc Tablet] 1 EACH Tablet) PO SCH (09:00)
[2022-06-06 09:26] LABS: ALT 27 U/L (8-44); AST 29 U/L (13-35); African American GFR (CKD) 82.4 (60.0-200.0); Albumin 3.5 g/dL (3.8-4.9); Albumin/Globulin Ratio 1.71 (1.60-3.17); Alkaline Phosphatase 35 U/L (41-126); BUN/Creat Ratio 17.35 Ratio (12.00-20.00); Blood Urea Nitrogen 14.3 mg/dL (9.0-27.0); Calcium 8.1 mg/dL (8.7-10.3); Chloride 105 mmol/L (96-109); Chol/HDL Ratio 2.96 Ratio; Globulin 2.1 g/dL (1.6-3.3); Glucose 112 mg/dL (70-110); LDL Cholesterol,Calculated 42.1 mg/dL (0.0-131.0); Magnesium 1.9 mg/dL (1.5-2.4); Non-African American GFR(CKD) 71.1 (60.0-200.0); Potassium 4.6 mmol/L (3.5-5.5); Sodium 140 mmol/L (135-145); Total Bilirubin <0.15 mg/dL (0.30-1.20); Total Protein 5.6 g/dL (6.2-8.2)
--- NOTE | 2022-06-06 11:03 | P.PN ---
Subjective Progress Note Date: 06/06/22 Principal diagnosis: Right knee osteoarthritis Patient was seen at bedside this morning resting comfortably sitting up in chair with legs elevated. Patient says she did get up with physical therapy this morning. I did talk with physical therapy and patient did seem somewhat uns table during stairs and while walking in the hallway. Patient does not have any family/friend to help her out at home and he does live at home alone. Patient says she doesn't walker for home and is looking forward to going home. Patient mentions she is not in much pain currently. Patient says she has urinated several times since surgery. Patient says she has not had a bowel movement yet. Patient denies chest pain, fever, shortness of breath, nausea, vomiting, change in vision, loss of bowel/bladder control Objective - Vital Signs Vital signs: Vital Signs Temp 98.6 F 06/06/22 07:27 Pulse 87 06/06/22 08:52 Resp 16 06/06/22 08:52 BP 113/64 06/06/22 08:48 Pulse Ox 90 L 06/06/22 07:27 FiO2 Intake & Output 06/05/22 06/06/22 06/06/22 18:59 06:59 18:59 Intake Total 2000 Output Total 50 Balance 1950 Weight 83.8 kg Intake: IV 1851 Oral 150 Output: Estimated Blood Loss 50 Other: Voiding Method Toilet Toilet # Voids 1 5 - Exam Right knee: Incision is clean, dry, and intact. The exofin fusion tape is in good condition. There is minimal soft tissue swelling and ecchymosis surrounding the medial and lateral aspects of the incision. Calf is soft, no tenderness with palpation. Plantar flexion, dorsiflexion, EHL, FHL are intact. Sensory exam to light touch throughout the extremity is intact, dorsal pedis pulses 2+. - Labs CBC & Chem 7: 06/06/22 05:20 06/06/22 05:20 Labs: Abnormal Lab Results - Last 24 Hours (Table) 06/05/22 06/05/22 06/06/22 Range/Units 10:46 22:29 05:20 RBC (4.10-5.20) X 10*6/uL Hgb (12.0-15.0) g/dL Hct (37.2-46.3) % MCHC (32.0-37.0) g/dL Anion Gap 8.80 L (10.00-18.00) mmol/L Glucose 112 H (70-110) mg/dL POC Glucose (mg/dL) 113 H 174 H (70-110) mg/dL Calcium 8.1 L (8.7-10.3) mg/dL Total Bilirubin <0.15 L (0.30-1.20) mg/dL Alkaline Phosphatase 35 L (41-126) U/L Total Protein 5.6 L (6.2-8.2) g/dL Albumin 3.5 L (3.8-4.9) g/dL HDL Cholesterol 36.10 L (40.00-60.00) mg/dL 06/06/22 06/06/22 Range/Units 05:20 06:52 RBC 3.68 L (4.10-5.20) X 10*6/uL Hgb 10.2 L (12.0-15.0) g/dL Hct 34.1 L (37.2-46.3) % MCHC 29.9 L (32.0-37.0) g/dL Anion Gap (10.00-18.00) mmol/L Glucose (70-110) mg/dL POC Glucose (mg/dL) 155 H (70-110) mg/dL Calcium (8.7-10.3) mg/dL Total Bilirubin (0.30-1.20) mg/dL Alkaline Phosphatase (41-126) U/L Total Protein (6.2-8.2) g/dL Albumin (3.8-4.9) g/dL HDL Cholesterol (40.00-60.00) mg/dL Assessment and Plan Assessment: 1. Right knee osteoarthritis - Postoperative day 1 status post right total knee arthroplasty Plan: 1. Right knee osteoarthritis - right total knee arthroplasty performed , 06/05/2022. Patient was a little bit unsteady during physical therapy encounter this morning. We'll keep patient for more night for pain control and plan for discharge home with health services tomorrow. 2. Appreciate medical management 3. Pain management - [place] 4. DVT prophylaxis - Xarelto 5. GI prophylaxis - senna 6. PT/OT - weightbearing as tolerated with walker 7. Encourage incentive spirometer use 8. Discharge planning - plan for discharge home with health services tomorrow. Time with Patient: Less than 30
[2022-06-06 11:11] LABS: Glucose,Whole Blood 162 mg/dL (70-110)
--- NOTE | 2022-06-06 11:27 | P.PN ---
Subjective Progress Note Date: 06/06/22 Principal diagnosis: s/p right knee replacement Hospital Course: Patient is a 71-year-old female with past medical history of hypothyroidism, hypertension, dyslipidemia presented for elective right knee arthroplasty secondary to osteoarthritis. [facility] was consulted for medical management. She is status post surgery, postop day 1. Currently working with physical therapy. Subjective: Patient seen and examined and the circumflex. No acute events overnight. She denies having any bowel movements, passing gas. She denies any chest pain, shortness breath, abdominal pain, urinary complaints. She still has some pain in her right knee, worsened after physical therapy session. Pertinent positives and negatives as discussed above, a complete review of systems was performed and all other systems are negative. Vitals Signs Reviewed. General: nontoxic, no distress, appears at stated age Derm: warm, dry Head: atraumatic, normocephalic, symmetric Eyes: EOMI, no lid lag, anicteric sclera Mouth: no lip lesion, mucus membranes moist Cardiovascular: S1S2 reg, no murmur Lungs: CTA bilateral, no rhonchi, no rales , no accessory muscle use Abdominal: soft, nontender to palpation, no guarding, no appreciable organomegaly Ext: no gross muscle atrophy, no edema, no contractures,right knee in dressing, pain pump present Neuro: CN II-XI grossly intact, no focal neuro deficits Psych: Alert, oriented, appropriate affect Assessment and Plan: Status post Right total knee arthroplasty -DVT prophylaxis and pain control per surgery -Likely discharge home tomorrow Prediabetes - outpatient follow Obesity - outpatient follow Normocytic anemia - likely in the setting of the postop Chronic medical problems: Hypothyroidism Dyslipidemia Hypertension Mood disorder -Medications reviewed and reconciled Thank you for allowing us to participate in the care of this pleasant patient. Do not hesitate to contact us with questions. Someone can be reached from the [facility] hospitalist group all hours of the day at [phone] or via [employer]. Objective - Vital Signs Vital signs: Vital Signs Temp 98.6 F 06/06/22 07:27 Pulse 87 06/06/22 08:52 Resp 16 06/06/22 08:52 BP 113/64 06/06/22 08:48 Pulse Ox 90 L 06/06/22 07:27 FiO2 Intake & Output 06/05/22 06/06/2222 18:59 06:59 18:59 Intake Total 2000 Output Total 50 Balance 1950 Weight 83.8 kg Intake: IV 1851 Oral 150 Output: Estimated Blood Loss 50 Other: Voiding Method Toilet Toilet # Voids 1 5 - Labs CBC & Chem 7: 06/06/22 05:20 06/06/22 05:20 Labs: Abnormal Lab Results - Last 24 Hours (Table) 06/05/22 06/06/22 06/06/22 Range/Units 22:29 05:20 05:20 RBC (4.10-5.20) X 10*6/uL Hgb (12.0-15.0) g/dL Hct (37.2-46.3) % MCHC (32.0-37.0) g/dL Anion Gap 8.80 L (10.00-18.00) mmol/L Glucose 112 H (70-110) mg/dL POC Glucose (mg/dL) 174 H (70-110) mg/dL Hemoglobin A1c 6.4 H (0.0-6.0) % Calcium 8.1 L (8.7-10.3) mg/dL Total Bilirubin <0.15 L (0.30-1.20) mg/dL Alkaline Phosphatase 35 L (41-126) U/L Total Protein 5.6 L (6.2-8.2) g/dL Albumin 3.5 L (3.8-4.9) g/dL HDL Cholesterol 36.10 L (40.00-60.00) mg/dL 06/06/22 06/06/22 06/06/22 Range/Units 05:20 06:52 11:09 RBC 3.68 L (4.10-5.20) X 10*6/uL Hgb 10.2 L (12.0-15.0) g/dL Hct 34.1 L (37.2-46.3) % MCHC 29.9 L (32.0-37.0) g/dL Anion Gap (10.00-18.00) mmol/L Glucose (70-110) mg/dL POC Glucose (mg/dL) 155 H 162 H (70-110) mg/dL Hemoglobin A1c (0.0-6.0) % Calcium (8.7-10.3) mg/dL Total Bilirubin (0.30-1.20) mg/dL Alkaline Phosphatase (41-126) U/L Total Protein (6.2-8.2) g/dL Albumin (3.8-4.9) g/dL HDL Cholesterol (40.00-60.00) mg/dL
[2022-06-06 16:23] LABS: Glucose,Whole Blood 122 mg/dL (70-110)
[2022-06-06] MEDS: SENNOSIDES-DOCUSATE SODIUM 1 EACH TAB PO SCH (20:18)
[2022-06-06] MEDS: ATORVASTATIN 40 MG TAB PO SCH (20:18)
[2022-06-06 20:57] LABS: Glucose,Whole Blood 181 mg/dL (70-110)
[2022-06-06] MEDS: traZODone HCL 50 MG TAB PO SCH (20:58)
[2022-06-06] MEDS: DULoxetine HCL 30 MG CAPSULE.DR PO SCH (20:58)
[2022-06-07] MEDS: LEVOTHYROXINE 25 MCG TAB PO SCH (06:40)
[2022-06-07 07:01] LABS: Glucose,Whole Blood 163 mg/dL (70-110)
[2022-06-07] MEDS ORDERED: ONDANSETRON 4 MG TAB PO PRN (08:38)
[2022-06-07] MEDS: MULTIVITAMINS, THERA 1 EACH TAB PO SCH (08:46)
[2022-06-07] MEDS: VIT A,C & E-LUTEIN-MINERALS 1 EACH TAB PO SCH (08:46)
[2022-06-07] MEDS: RIVAROXABAN 10 MG TAB PO SCH (08:46)
[2022-06-07] MEDS: MAGNESIUM OXIDE 400 MG TAB PO SCH (08:46)
[2022-06-07] MEDS: DULoxetine HCL 60 MG CAPSULE.DR PO SCH (08:46)
[2022-06-07] MEDS: ASPIRIN 81 MG PO SCH (08:47)
[2022-06-07] MEDS: atenoloL 25 MG TAB PO SCH (08:47)
[2022-06-07] MEDS: HYDROcodone/APAP 7.5-325MG 1 EACH TAB PO PRN ×3 (10:30→22:33)
[2022-06-07 11:32] LABS: Glucose,Whole Blood 133 mg/dL (70-110)
--- NOTE | 2022-06-07 12:37 | P.PN ---
Subjective Progress Note Date: 06/07/22 Principal diagnosis: s/p right knee replacement Hospital Course: Patient is a 71-year-old female with past medical history of hypothyroidism, hypertension, dyslipidemia presented for elective right knee arthroplasty secondary to osteoarthritis. [facility] was consulted for medical management. She is status post surgery, postop day 2. Currently working with physical therapy. Subjective: Patient seen and examined at bedside. No acute events overnight. She denies any chest pain, shortness breath, abdominal pain, urinary complaints. She is still having difficulty working with physical therapy. Pertinent positives and negatives as discussed above, a complete review of systems was performed and all other systems are negative. Vitals Signs Reviewed. General: nontoxic, no distress, appears at stated age Derm: warm, dry Head: atraumatic, normocephalic, symmetric Eyes: EOMI, no lid lag, anicteric sclera Mouth: no lip lesion, mucus membranes moist Cardiovascular: S1S2 reg, no murmur Lungs: CTA bilateral, no rhonchi, no rales , no accessory muscle use Abdominal: soft, nontender to palpation, no guarding, no appreciable organomegaly Ext: no gross muscle atrophy, no edema, no contractures,right knee in dressing, pain pump present Neuro: CN II-XI grossly intact, no focal neuro deficits Psych: Alert, oriented, appropriate affect Assessment and Plan: Status post Right total knee arthroplasty -DVT prophylaxis and pain control per surgery -Likely discharge home tomorrow Prediabetes - outpatient follow Obesity - outpatient follow Normocytic anemia - likely in the setting of the postop Nausea - Zofran Chronic medical problems: Hypothyroidism Dyslipidemia Hypertension Mood disorder -Medications reviewed and reconciled Thank you for allowing us to participate in the care of this pleasant patient. Do not hesitate to contact us with questions. Someone can be reached from the [facility] hospitalist group all hours of the day at [phone] or via [employer]. Objective - Vital Signs Vital signs: Vital Signs Temp 98.1 F 06/07/22 07:17 Pulse 97 06/07/22 07:17 Resp 19 06/07/22 07:17 BP 156/93 06/07/22 07:17 Pulse Ox 95 06/07/22 07:17 FiO2 Intake & Output 06/06/22 06/07/22 06/07/22 18:59 06:59 18:59 Intake Total 180 Balance 180 Intake: Oral 180 Other: Voiding Method Toilet # Voids 5 6 1 # Bowel Movements 1 - Labs CBC & Chem 7: 06/06/22 05:20 06/06/22 05:20 Labs: Abnormal Lab Results - Last 24 Hours (Table) 06/06/22 06/06/22 06/07/22 Range/Units 16:21 20:55 06:59 POC Glucose (mg/dL) 122 H 181 H 163 H (70-110) mg/dL 06/07/22 Range/Units 11:31 POC Glucose (mg/dL) 133 H (70-110) mg/dL
--- NOTE | 2022-06-07 13:03 | P.PN ---
Subjective Progress Note Date: 06/07/22 Principal diagnosis: Status post right total knee arthroplasty Patient was examined today bedside, she was resting in her hospital bed. Patient appears comfortable. She had been up earlier with physical therapy did rather well. She states that she still is feeling a little uneasy on her feet. She is by herself at home, she will have minimal family assistance once discharged. We did discuss the possibility of rehab today at bedside. She currently denies headaches, lightheadedness, chest pain or shortness of breath. Objective - Vital Signs Vital signs: Vital Signs Temp 98.1 F 06/07/22 07:17 Pulse 97 06/07/22 07:17 Resp 19 06/07/22 07:17 BP 156/93 06/07/22 07:17 Pulse Ox 95 06/07/22 07:17 FiO2 Intake & Output 06/06/22 06/07/22 06/07/22 18:59 06:59 18:59 Intake Total 180 Balance 180 Intake: Oral 180 Other: Voiding Method Toilet # Voids 5 6 1 # Bowel Movements 1 - Exam Right lower extremity: Incision is clean, dry, and intact. The exofin fusion tape is in good condition. There is minimal soft tissue swelling and ecchymosis surrounding the medial and lateral aspects of the incision. Calf is soft, no tenderness with palpation. Plantar flexion, dorsiflexion, EHL, FHL are intact. Sensory exam to light touch throughout the extremity is intact, dorsal pedis pulses 2+. - Labs CBC & Chem 7: 06/06/22 05:20 06/06/22 05:20 Labs: Abnormal Lab Results - Last 24 Hours (Table) 06/06/22 06/06/22 06/07/22 Range/Units 16:21 20:55 06:59 POC Glucose (mg/dL) 122 H 181 H 163 H (70-110) mg/dL 06/07/22 Range/Units 11:31 POC Glucose (mg/dL) 133 H (70-110) mg/dL Assessment and Plan Assessment: Postoperative day #2 status post right total knee arthroplasty Plan: Pain control, continue with current medications DVT prophylaxis, continue with current medication Continue to monitor incision, dressing instructions discussed the patient Encourage incentive spirometer Continue weight-bear as tolerated, PT/OT Medical recommendations Discharge planning: Did discuss with case management and the possibility of sub acute rehab, anticipating patient will be discharged home on 06/08/2022 pending her progress. Time with Patient: Less than 30
[2022-06-07 16:57] LABS: Glucose,Whole Blood 142 mg/dL (70-110)
[2022-06-07 19:57] LABS: Glucose,Whole Blood 120 mg/dL (70-110)
[2022-06-07] MEDS: ATORVASTATIN 40 MG TAB PO SCH (20:17)
[2022-06-07] MEDS: DULoxetine HCL 30 MG CAPSULE.DR PO SCH (20:17)
[2022-06-07] MEDS: SENNOSIDES-DOCUSATE SODIUM 1 EACH TAB PO SCH (20:17)
[2022-06-07] MEDS: traZODone HCL 50 MG TAB PO SCH (20:17)
[2022-06-08] MEDS: LEVOTHYROXINE 25 MCG TAB PO SCH (06:17)
[2022-06-08 06:55] LABS: Glucose,Whole Blood 119 mg/dL (70-110)
[2022-06-08] MEDS: HYDROcodone/APAP 7.5-325MG 1 EACH TAB PO PRN (07:52)
[2022-06-08 08:01] VITALS: BP 142/83; PULSE 82; RESP 18; TEMP 97.7
[2022-06-08] MEDS: MAGNESIUM OXIDE 400 MG TAB PO SCH (08:03)
[2022-06-08] MEDS: VIT A,C & E-LUTEIN-MINERALS 1 EACH TAB PO SCH (08:03)
[2022-06-08] MEDS: ASPIRIN 81 MG PO SCH (08:03)
[2022-06-08] MEDS: RIVAROXABAN 10 MG TAB PO SCH (08:04)
[2022-06-08] MEDS: DULoxetine HCL 60 MG CAPSULE.DR PO SCH (08:04)
[2022-06-08] MEDS: atenoloL 25 MG TAB PO SCH (08:04)
[2022-06-08] MEDS: MULTIVITAMINS, THERA 1 EACH TAB PO SCH (08:04)
--- NOTE | 2022-06-08 09:10 | P.PN ---
Subjective Progress Note Date: 06/08/22 Principal diagnosis: Right knee osteoarthritis Patient was seen at bedside this morning lying supine position with ice over her right knee. Patient says she is wanting to go home. [facility] able to have [facility] therapy for 3 weeks. Patient says her son will be able to help her couple days and she says her son will be coming the hospital within the next couple hours. Patient says she does have a walker for home. Patient feels that yesterday she did do better with physical therapy. Patient mentions she is not in much pain currently. Patient says she has urinated several times since surgery. Patient says she has not had a bowel movement yet. Patient denies chest pain, fever, shortness of breath, nausea, vomiting, change in vision, loss of bowel/bladder control Objective - Vital Signs Vital signs: Vital Signs Temp 97.7 F 06/08/22 08:00 Pulse 82 06/08/22 08:00 Resp 18 06/08/22 08:00 BP 142/83 06/08/22 08:00 Pulse Ox 95 06/08/22 08:00 FiO2 Intake & Output 06/07/22 06/08/22 06/08/22 18:59 06:59 18:59 Other: # Voids 1 3 1 - Exam Right knee: Incision is clean, dry, and intact. The exofin fusion tape is in good condition. There is minimal soft tissue swelling and ecchymosis surrounding the medial and lateral aspects of the incision. Calf is soft, no tenderness with palpation. Plantar flexion, dorsiflexion, EHL, FHL are intact. Sensory exam to light touch throughout the extremity is intact, dorsal pedis pulses 2+. - Labs CBC & Chem 7: 06/06/22 05:20 06/06/22 05:20 Labs: Abnormal Lab Results - Last 24 Hours (Table) 06/07/22 06/07/22 06/07/22 Range/Units 11:31 16:54 19:56 POC Glucose (mg/dL) 133 H 142 H 120 H (70-110) mg/dL 06/08/22 Range/Units 06:52 POC Glucose (mg/dL) 119 H (70-110) mg/dL Assessment and Plan Assessment: 1. Right knee osteoarthritis - Postoperative day 3 status post right total knee arthroplasty Plan: 1. Right knee osteoarthritis - right total knee arthroplasty performed 06/05/2022. Patient was a little bit unsteady during physical therapy encounter over the past couple days. Patient about to work with PT this morning. Patient s ays her son will be available to help her at home. Plan for discharge home with health services later today. 2. Appreciate medical management 3. Pain management - [place] 4. DVT prophylaxis - Xarelto; Eliquis 2.5 mg BID x 2 weeks once home 5. GI prophylaxis - sennal; Colace once home 6. PT/OT - weightbearing as tolerated with walker 7. Encourage incentive spirometer use 8. Discharge planning - plan for discharge home with health services later today. Time with Patient: Less than 30
--- NOTE | 2022-06-08 09:59 | P.DS ---
Providers Date of admission: 06/07/22 11:28 Expected date of discharge: 06/08/22 Attending physician: Sudhir Gaston Consults: 06/05/22 13:04 Consult Physician Routine Consulting Provider: Harleen Mckeon Consult Reason/Comments: Medical Management s/p right total knee arthroplasty Do you want consulting provider notified?: Yes Primary care physician: [facility] Hospital Course: Date of admission: 06/05/2022 Date of discharge: 06/08/2022 Admission diagnosis: Right knee osteoarthritis Discharge diagnosis: Same Attending physician: Dr. Gaston Surgical procedures: Right total knee arthroplasty Brief history: Patient is a 71-year-old female with a history of progressive primary right knee osteoarthritis. At this point patient has failed conservative treatment measures and has opted to proceed with a elective right total knee arthroplasty. Hospital course: Details of patient's surgery can be found in operative report. Patient tolerated the procedure well and was subsequently transported to orthopedic floor. Patient's orthopeidc and medical care was provided daily. Patient had daily laboratory tests performed for evaluation of overall blood counts. Patient had daily physical therapy to include strengthening range of motion as well as education with walker ambulation. Patient was treated with Xarelto for their postoperative DVT prophylaxis during their inpatient stay. Patient was noted to have a relatively uneventful postoperative course. Patient reported satisfactory pain control with oral pain medications by postoperative day 3. Patient showed satisfactory progress with physical therapy. Patient moved steadily through the program and had no difficulty meeting the goals by postoperative day 3. Given patient's otherwise satisfactory course and having met physical therapy goals, plan is to discharge patient home with health services on postoperative day 3. Discharge condition/disposition: Patient will be discharged home with health services in stable condition. Discharge medications: Instructions are given on resumption of patient's normal daily medications per primary care recommendation, in addition patient will be prescribed [place]; Colace; Eliquis 2.5 mg BID x 2 weeks. Discharge instructions: 1. Wound care and infection precautions, keep incision dry and covered while showering, no lotions, creams, moisturizers. No soaking, tubs, pools, hottubs. Do not scrub over the incision. 2. Weight-bear as tolerated with walker / cane until follow-up. 3. Ice and elevate when necessary. Do not exceed 20 minutes per hour with ice pack. 4. Utilize compression sleeve until seen at first follow up appointment. 5. Visiting nursing care. 6. Home physical therapy including home CPM. 7. Pain meds and anticoagulants per prescription. 8. Pain medication has potential to cause constipation. Increase oral fluid and fiber intake. Contact primary care provider if you have not had a bowel movement within 48 hours after discharge 9. No anti-inflammatory medication until discussed at first post operative visit, this including Motrin, Aleve, Mobic, Diclofenac. 10. Follow up in office at 2 weeks postop with Son Ramirez PA-C / Ghassan Diego PA-C 11. Follow up with your primary care doctor 7-10 days after discharge. 12. Contact [facility] with any questions, . Assessment: Right knee osteoarthritis Procedures: Right total knee arthroplasty Patient Condition at Discharge: Good Plan - Discharge Summary Discharge Rx Participant: Yes New Discharge Prescriptions: New Docusate [Colace] 100 mg PO DAILY #30 capsule Apixaban [Eliquis] 2.5 mg PO BID #60 tab HYDROcodone/APAP 7.5-325MG [[place] 7.5] 1 each PO Q6HR PRN #28 tab PRN Reason: Pain No Action atenoloL [Tenormin] 25 mg PO QAM Multivit-Min/Iron/Folic/Lutein [Centrum Silver Women Tablet] 1 each PO DAILY Fluticasone Nasal [place] [Flonase Nasal [place]] 2 spr EA NOSTRIL DAILY PRN PRN Reason: allergies Calcium/Magnesium/Zinc [Gcdoemp-Anhkyztmy-Pxaj Tablet] 2 each PO DAILY traZODone HCL [TraZODone HCl] 1 tab PO HS Vit C/E/Zn/Coppr/Lutein/Zeaxan [Preservision Areds 2 Chew Tab] 1 tab PO DAILY Rosuvastatin [Crestor] 20 mg PO HS Magnesium 200 mg PO DAILY Levothyroxine Sodium 25 mcg PO DAILY Baclofen 10 mg PO TID PRN PRN Reason: Pain DULoxetine HCL [Cymbalta] 30 mg PO BID diphenhydrAMINE HCL [Benadryl Allergy] 25 mg PO DAILY PRN PRN Reason: Congestion Glucosamine HCl/Chondroitin Benitez [Glucosamine-Chondroitin Cap] 1 cap PO DAILY Discharge Medication List atenoloL [Tenormin] 25 mg PO QAM 09/27/14 [History] Calcium/Magnesium/Zinc [Cfvaiwd-Vxmlsccdm-Fgoe Tablet] 2 each PO DAILY 03/03/19 [History] Fluticasone Nasal [place] [Flonase Nasal [place]] 2 spr EA NOSTRIL DAILY PRN 03/03/19 [History] Multivit-Min/Iron/Folic/Lutein [Centrum Silver Women Tablet] 1 each PO DAILY 03/03/19 [History] traZODone HCL [TraZODone HCl] 1 tab PO HS 09/01/20 [History] Baclofen 10 mg PO TID PRN 06/01/22 [History] DULoxetine HCL [Cymbalta] 30 mg PO BID 06/01/22 [History] Glucosamine HCl/Chondroitin Benitez [Glucosamine-Chondroitin Cap] 1 cap PO DAILY 06/01/22 [History] Levothyroxine Sodium 25 mcg PO DAILY 06/01/22 [History] Magnesium 200 mg PO DAILY 06/01/22 [History] Rosuvastatin [Crestor] 20 mg PO HS 06/01/22 [History] Vit C/E/Zn/Coppr/Lutein/Zeaxan [Preservision Areds 2 Chew Tab] 1 tab PO DAILY 06/01/22 [History] diphenhydrAMINE HCL [Benadryl Allergy] 25 mg PO DAILY PRN 06/01/22 [History] Apixaban [Eliquis] 2.5 mg PO BID #60 tab 06/08/22 [Rx] Docusate [Colace] 100 mg PO DAILY #30 capsule 06/08/22 [Rx] HYDROcodone/APAP 7.5-325MG [[place] 7.5] 1 each PO Q6HR PRN #28 tab 06/08/22 [Rx] Follow up Appointment(s)/Referral(s): Ghassan Diego, AISLINN [PHYSICIAN EMTS] - 06/21/22 9:20 am [facility] [NON-STAFF] - 1-2 Days ([facility] will call you to schedule your in home physical therapy and nursing visits. ) [facility],Clinic [Primary Care Provider] - 1 Week Patient Instructions/Handouts: Knee Replacement (DC) Activity/Diet/Wound Care/Special Instructions: Orthopedic Discharge Instructions: 1. Wound care and infection precautions, keep incision dry and covered while showering, no lotions, creams, moisturizers. No soaking, pools, hot tubs. Do not scrub over incision. 2. Weight-bear as tolerated with walker / cane until follow-up. 3. Ice and elevate when necessary. Do not exceed 20 minutes per hour with ice pack. 4. Utilize compression sleeve until seen at first follow up appointment. 5. Pain meds and anticoagulants per prescription. 6. Pain medication has potential to cause constipation. Increase oral fluid and fiber intake. Contact primary care provider if you have not had a bowel movement within 48 hours after discharge. 7. No anti-inflammatory medication until discussed at first post operative visit, this including Motrin, Aleve, Mobic, Diclofenac. 8. Follow up in office at 2 weeks postop with Son Ramirez PA-C/Ghassan Diego PA-C 9. Follow up with your primary care doctor 7-10 days after discharge. 10. Contact [facility] with any questions, . Medications: [place]; Colace; Eliquis 2.5 mg BID x 2 weeks. Keep incision clean, dry, intact. While showering, cover fusion tape with Saran wrap. Keep fusion tape on until follow-up appointment in office in 2 weeks. Discharge Disposition: HOME WITH HOME HEALTH SERVICES
[2022-06-08 10:38] LABS: Basophils # (A) 0.04 X 10*3/uL (0.00-0.10); Basophils % (A) 0.4 %; HCT 33.3 % (37.2-46.3); HGB 10.7 g/dL (12.0-15.0); Immature Grans, Automated 0.3 %; Lymphocytes # (A) 2.08 X 10*3/uL (0.90-5.00); Lymphocytes % (A) 21.8 %; MCHC 32.1 g/dL (32.0-37.0); MCV 87.2 fL (80.0-97.0); Mean Platelet Volume 11.2 fL (9.5-12.2); Monocytes # (A) 0.99 X 10*3/uL (0.20-1.00); Monocytes % (A) 10.4 %; NRBC Per 100 WBC 0 /100 WBCS (0.0-0.0); Neutrophils % (A) 66.1 %; Platelet Count 221 X 10*3/uL (140-440); RBC 3.82 X 10*6/uL (4.10-5.20); RDW 13.2 % (11.5-14.5); WBC 9.54 X 10*3/uL (4.50-10.00)
--- NOTE | 2022-06-08 11:34 | P.PN ---
Subjective Progress Note Date: 06/08/22 Principal diagnosis: s/p right knee replacement Hospital Course: Patient is a 71-year-old female with past medical history of hypothyroidism, hypertension, dyslipidemia presented for elective right knee arthroplasty secondary to osteoarthritis. [facility] was consulted for medical management. She is status post surgery, postop day 3. [facility] Subjective: Patient seen and examined at bedside. No acute events overnight. She denies any chest pain, shortness breath, abdominal pain, urinary complaints. Pertinent positives and negatives as discussed above, a complete review of systems was performed and all other systems are negative. Vitals Signs Reviewed. General: nontoxic, no distress, appears at stated age Derm: warm, dry Head: atraumatic, normocephalic, symmetric Eyes: EOMI, no lid lag, anicteric sclera Mouth: no lip lesion, mucus membranes moist Cardiovascular: S1S2 reg, no murmur Lungs: CTA bilateral, no rhonchi, no rales , no accessory muscle use Abdominal: soft, nontender to palpation, no guarding, no appreciable organomegaly Ext: no gross muscle atrophy, no edema, no contractures,right knee in dressing, pain pump present Neuro: CN II-XI grossly intact, no focal neuro deficits Psych: Alert, oriented, appropriate affect Assessment and Plan: Status post Right total knee arthroplasty -DVT prophylaxis and pain control per surgery -Discharge today, with home care Prediabetes - outpatient follow Obesity - outpatient follow Normocytic anemia - likely in the setting of the postop Nausea - Zofran Chronic medical problems: Hypothyroidism Dyslipidemia Hypertension Mood disorder -Medications reviewed and reconciled Patient is optimized for discharge home from medicine standpoint. Objective - Vital Signs Vital signs: Vital Signs Temp 97.7 F 06/08/22 08:00 Pulse 82 06/08/22 08:00 Resp 18 06/08/22 08:00 BP 142/83 06/08/22 08:00 Pulse Ox 95 06/08/22 08:00 FiO2 Intake & Output 06/07/22 06/08/22 06/08/22 18:59 06:59 18:59 Other: # Voids 1 3 1 - Labs CBC & Chem 7: 06/08/22 07:18 06/06/22 05:20 Labs: Abnormal Lab Results - Last 24 Hours (Table) 06/07/22 06/07/22 06/08/22 Range/Units 16:54 19:56 06:52 RBC (4.10-5.20) X 10*6/uL Hgb (12.0-15.0) g/dL Hct (37.2-46.3) % POC Glucose (mg/dL) 142 H 120 H 119 H (70-110) mg/dL 06/08/22 Range/Units 07:18 RBC 3.82 L (4.10-5.20) X 10*6/uL Hgb 10.7 L (12.0-15.0) g/dL Hct 33.3 L (37.2-46.3) % POC Glucose (mg/dL) (70-110) mg/dL
== END 2022-06-08 12:27 | disposition home health service (06) ==
LOC: OR 10:12 → 4SSUR 13:15 → OR 06-07 11:28
PROVIDERS: ADMIT Orthopaedic Surgery; ATTEND Orthopaedic Surgery
DX: M17.11 Unilateral primary osteoarthritis, right knee (principal); G89.18 Other acute postprocedural pain; I10 Essential (primary) hypertension; E78.5 Hyperlipidemia, unspecified; E03.9 Hypothyroidism, unspecified; F39 Unspecified mood [affective] disorder; K21.9 Gastro-esophageal reflux disease without esophagitis; E11.42 Type 2 diabetes mellitus with diabetic polyneuropathy; E66.9 Obesity, unspecified; R11.0 Nausea; D64.9 Anemia, unspecified; Z90.710 Acquired absence of both cervix and uterus; Z98.41 Cataract extraction status, right eye; Z98.1 Arthrodesis status; Z87.891 Personal history of nicotine dependence; Z80.6 Family history of leukemia; Z80.1 Family history of malignant neoplasm of trachea, bronchus and lung; Z79.899 Other long term (current) drug therapy; Z79.82 Long term (current) use of aspirin; Z79.890 Hormone replacement therapy; Z68.31 Body mass index [BMI] 31.0-31.9, adult
CPT/HCPCS: 27447; 20680; 97116; 97110; 97161; 97530; 97535 ×2; 97166; 64999; 64448; 76942; 80061; 80053; 84443; 83735; 85025 ×2; 88300; 83036; 73560; G0378 ×2; C1713 ×2; C1776; J2250; J0690 ×3; J2405; J2795 ×2; J2370; J2704; J1170

== ENCOUNTER 2022-09-10 01:07 | Emergency (ER) | payer OTHER ==
[2022-09-10 01:25] VITALS: BP 121/65; PULSE 97; RESP 16; TEMP 97.5
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
== END 2022-09-10 01:56 | disposition home or self-care (01) ==
LOC: EC 01:07
DX: E11.40 Type 2 diabetes mellitus with diabetic neuropathy, unspecified (principal); E11.36 Type 2 diabetes mellitus with diabetic cataract; I10 Essential (primary) hypertension; K21.9 Gastro-esophageal reflux disease without esophagitis; M19.90 Unspecified osteoarthritis, unspecified site; E78.5 Hyperlipidemia, unspecified; Z87.891 Personal history of nicotine dependence; Z79.01 Long term (current) use of anticoagulants; Z79.82 Long term (current) use of aspirin; Z79.890 Hormone replacement therapy; Z79.899 Other long term (current) drug therapy
CPT/HCPCS: 99283

== ENCOUNTER → 2022-11-01 | Outpatient (CLI) | payer OTHER ==
--- NOTE | 2022-11-01 14:32 | MR ---
EXAMINATION TYPE: MR brain wo con DATE OF EXAM: 11/01/2022 COMPARISON: NONE HISTORY: 72-year-old female R41.02, confusion, ALTERED MENTAL STATUS TECHNIQUE: Multiplanar, multisequence images of the brain and brainstem were acquired without IV con trast. Diffusion-weighted imaging is performed. FINDINGS: No evidence for acute infarction, hemorrhage, mass, mass effect, midline shift, herniation, effacemen t of basal cisterns, or extra-axial fluid collection. The ventricles and sulci are age-appropriate with mild generalized cerebral cortical atrophy. Major intracranial flow voids are intact. T2/FLAIR weighted sequences show moderate scattered bright signal foci especially in the deep white m atter regions of both cerebral hemispheres. Midline structures demonstrate normal morphology. The craniocervical junction is normal. Post contrast images demonstrate no evidence of pathologic enhancement. Dural venous sinuses are pat ent. There is moderate mucosal thickening ethmoid air cells and [id number] on the left maxillary sin us with trace air-fluid level. There may be minimal fluid in the inferior right mastoid air cells. Minimal fluid in the far posterio r and lateral right sphenoid sinus. Globes are intact. IMPRESSION: 1. Mild cerebral atrophy and moderate scattered burden of chronic small vessel ischemic disease. No a cute intracranial abnormality seen. 2. Moderate chronic ethmoid sinus disease. Small air-fluid level left maxillary sinus could represent acute sinusitis. Clinically correlate
== END | disposition home or self-care (01) ==
LOC: RADMRIMAIN 10:42
PROVIDERS: ATTEND Physician Assistant Medical
DX: G31.9 Degenerative disease of nervous system, unspecified (principal); J32.2 Chronic ethmoidal sinusitis; I67.82 Cerebral ischemia; R41.82 Altered mental status, unspecified
CPT/HCPCS: 70551

== ENCOUNTER 2022-11-19 19:20 | Emergency (ER) | payer OTHER ==
[2022-11-19 20:13] VITALS: BP 169/89; PULSE 89; RESP 18; TEMP 97.9
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
[2022-11-19] MEDS ORDERED: ACETAMINOPHEN TAB 500 MG TAB PO STA (22:34)
[2022-11-19] MEDS ORDERED: SODIUM CHLORIDE 0.9% 500 ML 500 ML IV ONE (22:34)
[2022-11-19] MEDS ORDERED: METOCLOPRAMIDE 5 MG/ML 2 ML VIAL IVP STA (22:35)
[2022-11-19] MEDS ORDERED: KETOROLAC 15 MG/ML 1 ML VIAL IVP STA (22:35)
--- NOTE | 2022-11-19 23:05 | CT ---
EXAMINATION TYPE: CT brain wo con DATE OF EXAM: 11/19/2022 COMPARISON: 03/12/17 HISTORY: Headache x [address] DLP: 1276.[address] of the brain was performed. The ventricles, basal cisterns and sulci overlying the cerebral convexities demonstrate mild enlargem ent. There is no evidence for intracranial hemorrhage or sulcal effacement. There is decreased attenuation about the periventricular white matter and deep white matter of both c erebral hemispheres, compatible with chronic small vessel ischemia. Differential diagnosis does inclu de demyelination. No mass effects are seen.No midline shift. Osseous calvarium is intact. If symptoms persist consider MRI. IMPRESSION: 1. Age related atrophic and chronic small vessel ischemic change without acute intracranial process s een at this time.
[2022-11-19 23:15] LABS: Basophils # (A) 0.1 k/uL (0-0.2); Basophils % (A) 1 %; Eosinophils # (A) 0.2 k/uL (0-0.7); Eosinophils % (A) 3 %; HCT 42.3 % (34.0-46.0); HGB 13.8 gm/dL (11.4-16.0); Lymphocytes # (A) 2.8 k/uL (1.0-4.8); Lymphocytes % (A) 36 %; MCH 28.3 pg (25.0-35.0); MCHC 32.6 g/dL (31.0-37.0); MCV 86.8 fL (80.0-100.0); Monocytes # (A) 0.7 k/uL (0-1.0); Monocytes % (A) 9 %; Neutrophils # (A) 3.8 k/uL (1.3-7.7); Neutrophils % (A) 49 %; Platelet Count 244 k/uL (150-450); RBC 4.88 m/uL (3.80-5.40); RDW 13.8 % (11.5-15.5); WBC 7.8 k/uL (3.8-10.6)
[2022-11-19 23:25] LABS: ALT 47 U/L (4-34); AST 51 U/L (14-36); African American GFR (CKD) >90 (>60 ml/min/1.73 sqM); Albumin 4.1 g/dL (3.5-5.0); Alkaline Phosphatase 50 U/L (38-126); Anion Gap 8 mmol/L; Blood Urea Nitrogen 12 mg/dL (7-17); Calcium 9.3 mg/dL (8.4-10.2); Carbon Dioxide 26 mmol/L (22-30); Chloride 106 mmol/L (98-107); Glucose 102 mg/dL (74-99); Non-African American GFR(CKD) 89 (>60 ml/min/1.73 sqM); Potassium 4.2 mmol/L (3.5-5.1); Sodium 140 mmol/L (137-145); Total Bilirubin 0.8 mg/dL (0.2-1.3); Total Protein 7.2 g/dL (6.3-8.2)
== END 2022-11-20 00:04 | disposition home or self-care (01) ==
LOC: EC 19:20
DX: R51.9 Headache, unspecified (principal); I10 Essential (primary) hypertension; E78.5 Hyperlipidemia, unspecified; E11.9 Type 2 diabetes mellitus without complications; M19.90 Unspecified osteoarthritis, unspecified site; Z87.891 Personal history of nicotine dependence; Z79.899 Other long term (current) drug therapy
CPT/HCPCS: 99284 ×2; 96374 ×2; 96375 ×2; 96361 ×2; 36415; 80053; 85025; 70450; J2765; J1885

== ENCOUNTER → 2022-11-27 | Outpatient (CLI) | payer OTHER ==
--- NOTE | 2022-11-28 12:51 | MM ---
Reason for Exam: Screening (asymptomatic). Last mammogram was performed 1 year(s) and 2 month(s) ago. Patient History: Menarche at age 10. First Full-Term at age 24. Left ovary removed at age 42. Right ovary removed at age 42. Hysterectomy at age 42. Postmenopausal. Patient has history of breast feeding. Benign Excisional Biopsy on the right side. Benign Excisional Biopsy on the right side. Maternal grandmother had breast cancer. Risk Values: Sharron 5 year model risk: 3.2%. NCI Lifetime model risk: 7.8%. Prior Study Comparison: 07/28/2019 Bilateral Screening Mammogram, [facility]. 10/05/2020 Bilateral Screening Mammogram, [facility]. 10/06/2021 Bilateral Screening Mammogram, [facility]. Tissue Density: There are scattered fibroglandular densities. Findings: Analyzed By CAD. Pattern appears stable. There are are benign spherical calcifications present bilaterally. No suspicious groups of microcalcifications, spiculated or lobular masses, architectural distortion or other secondary signs of malignancy are mammographically apparent. Overall Assessment: Benign, BI-RAD 2 Management: Screening Mammogram of both breasts in 1 year. A negative mammogram report should not preclude additional follow up of suspicious palpable abnormalities. Patient should continue monthly self breast exam. A clinical breast exam by your physician is recommended on an annual basis and results should be correlated with mammographic findings. Electronically signed and approved by: Jakob Terry D.O. Radiologis
== END | disposition home or self-care (01) ==
LOC: RADMAMWWP 11:20
DX: Z12.31 Encounter for screening mammogram for malignant neoplasm of breast (principal); Z78.0 Asymptomatic menopausal state; Z80.3 Family history of malignant neoplasm of breast
CPT/HCPCS: 77067

== ENCOUNTER 2022-11-29 07:45 | Emergency (ER) | payer OTHER ==
[2022-11-29 08:00] VITALS: BP 157/69; TEMP 97.8
[2022-11-29] MEDS ORDERED: HYDROcodone/APAP 5-325MG 1 EACH TAB PO STA (08:06)
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
--- NOTE | 2022-11-29 08:21 | XR ---
EXAMINATION TYPE: XR wrist complete RT DATE OF EXAM: 11/29/2022 8:17 AM INDICATION: Patient age:Female; 72 years old; Reason for study: fall pain; PHH. COMPARISON: None TECHNIQUE: 4 views of the right wrist. Frontal, navicular, lateral, and oblique. FINDINGS: No acute osseous pathology, joint dislocation, or joint effusion. Degenerative changes of the carpal bones. Mild soft tissue swelling of the wrist. IMPRESSION: 1. No acute osseous pathology. 2. Mild soft tissue swelling of the wrist.
[2022-11-29 08:39] VITALS: PULSE 74; RESP 18
== END 2022-11-29 08:39 | disposition home or self-care (01) ==
LOC: EC 07:45
DX: S69.91XA Unspecified injury of right wrist, hand and finger(s), initial encounter (principal); E11.40 Type 2 diabetes mellitus with diabetic neuropathy, unspecified; I10 Essential (primary) hypertension; E78.5 Hyperlipidemia, unspecified; K21.9 Gastro-esophageal reflux disease without esophagitis; M19.90 Unspecified osteoarthritis, unspecified site; Z87.891 Personal history of nicotine dependence; Z79.899 Other long term (current) drug therapy; W01.0XXA Fall on same level from slipping, tripping and stumbling without subsequent striking against object, initial encounter; Y92.009 Unspecified place in unspecified non-institutional (private) residence as the place of occurrence of the external cause
CPT/HCPCS: 99283

== ENCOUNTER 2023-01-14 13:26 | Emergency (ER) | payer OTHER ==
[2023-01-14 13:51] VITALS: TEMP 97
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
[2023-01-14 15:18] LABS: Basophils % (A) 0 %; Eosinophils # (A) 0.1 k/uL (0-0.7); Eosinophils % (A) 1 %; HGB 13.9 gm/dL (11.4-16.0); Lymphocytes # (A) 2.1 k/uL (1.0-4.8); Lymphocytes % (A) 23 %; MCH 28.3 pg (25.0-35.0); MCHC 32.3 g/dL (31.0-37.0); MCV 87.4 fL (80.0-100.0); Mean Platelet Volume 7.7; Monocytes # (A) 0.7 k/uL (0-1.0); Monocytes % (A) 7 %; Neutrophils # (A) 6.1 k/uL (1.3-7.7); Neutrophils % (A) 66 %; Platelet Count 270 k/uL (150-450); RBC 4.93 m/uL (3.80-5.40); RDW 13.5 % (11.5-15.5); WBC 9.2 k/uL (3.8-10.6)
[2023-01-14 15:43] LABS: African American GFR (CKD) 80 (>60 ml/min/1.73 sqM); Anion Gap 11 mmol/L; Blood Urea Nitrogen 23 mg/dL (7-17); Calcium 9.2 mg/dL (8.4-10.2); Carbon Dioxide 25 mmol/L (22-30); Chloride 104 mmol/L (98-107); Glucose 118 mg/dL (74-99); Non-African American GFR(CKD) 69 (>60 ml/min/1.73 sqM); Potassium 4.3 mmol/L (3.5-5.1); Sodium 140 mmol/L (137-145)
--- NOTE | 2023-01-14 15:44 | CT ---
EXAMINATION TYPE: CT brain cspine wo con DATE OF EXAM: 01/14/2023 COMPARISON: CT brain November 19, 2022 HISTORY: Fall, no LOC. Neck pain after injury. CT DLP: 1629.7 mGycm. Automated Exposure Control for Dose Reduction was Utilized. TECHNIQUE: CT scan of the head and cervical spine are performed without contrast. FINDINGS: There is no acute intracranial hemorrhage or midline shift identified. Mild ventricular a nd sulcal prominence. Mild low attenuation in the periventricular white matter. The calvarium is inta ct. The globes are intact and the visualized sinuses are clear. Cervical spine is visualized in its entirety from C1 through upper thoracic levels and demonstrates r eversal of normal cervical curvature without evidence of acute fracture or dislocation. Prevertebral soft tissue appears within normal limits. The C1-C2 articulation is within normal limits on the cor onal images. There is anterior fusion plate with artificial disc material C3-C5 levels. There is add itional anterior fusion plate with artificial disc material C6-C7 level. There is bony fusion at C5-C 6 noted. Posterior bony projections effaces anterior thecal sac at inferior C3 and superior C5 levels on sagittal images. Review of axial images shows multilevel uncovertebral facet degenerative changes causing multilevel b ilateral neural foraminal narrowing. Mild calcified pleural bilateral lung apices. No pneumothorax is seen. Thyroid gland is somewhat small in size. IMPRESSION: 1. There is no acute fracture or dislocation evident in the cervical spine. 2. No acute intracranial hemorrhage or midline shift is seen.
--- NOTE | 2023-01-14 15:49 | XR ---
EXAMINATION TYPE: XR Hip LT and AP Pelvis DATE OF EXAM: 01/14/2023 3:42 PM INDICATION: Patient age:Female; 72 years old; Reason for study: fall; PHH. COMPARISON: None. TECHNIQUE: The left hip was examined in the frontal and lateral projections and a AP pelvis. FINDINGS: No evidence of any acute osseous pathology, joint dislocation, or soft tissue swelling. Mil d medial joint space narrowing with acetabular sclerosis and marginal osteophytosis of both hips. Mul tiple pelvic phleboliths. IMPRESSION: 1. No acute osseous pathology. 2. Mild to moderate osteoarthritic changes of both hips.
[2023-01-14 17:00] VITALS: BP 138/84; PULSE 68; RESP 16
== END 2023-01-14 17:00 | disposition home or self-care (01) ==
LOC: EC 13:26
DX: R41.82 Altered mental status, unspecified (principal); E11.9 Type 2 diabetes mellitus without complications; E78.5 Hyperlipidemia, unspecified; I10 Essential (primary) hypertension; M19.90 Unspecified osteoarthritis, unspecified site; Z87.891 Personal history of nicotine dependence; Z79.1 Long term (current) use of non-steroidal anti-inflammatories (NSAID); Z79.890 Hormone replacement therapy; Z79.899 Other long term (current) drug therapy; Z88.8 Allergy status to other drugs, medicaments and biological substances
CPT/HCPCS: 36415; 70450; 72125; 73502; 80048; 85025; 99285

== ENCOUNTER 2023-02-06 18:53 | Emergency (ER) | payer OTHER ==
[2023-02-06 19:01] VITALS: PULSE 88; TEMP 97.9
[2023-02-06] MEDS ORDERED: KETOROLAC 15 MG/ML 1 ML VIAL IM STA (20:45)
--- NOTE | 2023-02-06 20:55 | XR ---
EXAMINATION TYPE: XR tibia fibula LT DATE OF EXAM: 02/06/2023 CLINICAL HISTORY: pain TECHNIQUE: AP and lateral images of the left tibia and fibula are obtained. COMPARISON: None. FINDINGS: There is no acute fracture/dislocation evident. The joint spaces appear within normal kent its. The overlying soft tissue appears unremarkable. IMPRESSION: There is no acute fracture or dislocation seen. ICD 10 NO FRACTURE, INITIAL EVALUATION
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
[2023-02-06 21:44] VITALS: BP 132/81; RESP 18
== END 2023-02-06 21:44 | disposition home or self-care (01) ==
LOC: EC 18:53
DX: S83.92XA Sprain of unspecified site of left knee, initial encounter (principal); E11.9 Type 2 diabetes mellitus without complications; E78.5 Hyperlipidemia, unspecified; I10 Essential (primary) hypertension; M19.90 Unspecified osteoarthritis, unspecified site; Z79.1 Long term (current) use of non-steroidal anti-inflammatories (NSAID); Z79.890 Hormone replacement therapy; Z79.84 Long term (current) use of oral hypoglycemic drugs; Z79.899 Other long term (current) drug therapy; Z88.8 Allergy status to other drugs, medicaments and biological substances; Z87.891 Personal history of nicotine dependence; X58.XXXA Exposure to other specified factors, initial encounter
CPT/HCPCS: 73590; 99284; 96372; J1885

== ENCOUNTER 2023-02-11 09:17 | Emergency (ER) | payer OTHER ==
[2023-02-11 09:25] VITALS: RESP 16
[2023-02-11] MEDS ORDERED: KETOROLAC 15 MG/ML 1 ML VIAL IM STA (09:54)
[2023-02-11] MEDS ORDERED: MORPHINE SULFATE 4 MG/ML SYRINGE IM STA (09:54)
--- NOTE | 2023-02-11 10:27 | XR ---
EXAMINATION TYPE: XR tibia fibula LT DATE OF EXAM: 02/11/2023 COMPARISON: 02/06/2023 HISTORY: Continued pain from fall TECHNIQUE: 2 view left tibia and fibula FINDINGS: No acute or subacute fractures evident. Joint spaces appear preserved. Soft tissues are unr emarkable. IMPRESSION: 1. No acute osseous abnormality
--- NOTE | 2023-02-11 10:29 | XR ---
EXAMINATION TYPE: XR wrist complete LT DATE OF EXAM: 02/11/2023 COMPARISON: None HISTORY: Fall, pain TECHNIQUE: 4 view left wrist FINDINGS: No acute or subacute fractures identified. Soft tissues appear normal. Alignment is preserv ed. There is osteoarthritic degenerative changes first carpal metacarpal junction. There is some prominence of the scapholunate space adjacent to the radius. Consider MRI to evaluate s capholunate ligament. IMPRESSION: 1. No acute osseous abnormality. 2. Scapholunate disassociation entirely excluded. Consider MRI for additional evaluation.
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
[2023-02-11 11:52] VITALS: BP 163/76; PULSE 65; TEMP 97.8
== END 2023-02-11 11:52 | disposition home or self-care (01) ==
LOC: EC 09:17
DX: S69.92XA Unspecified injury of left wrist, hand and finger(s), initial encounter (principal); M79.605 Pain in left leg; E11.9 Type 2 diabetes mellitus without complications; K21.9 Gastro-esophageal reflux disease without esophagitis; E78.5 Hyperlipidemia, unspecified; I10 Essential (primary) hypertension; M19.90 Unspecified osteoarthritis, unspecified site; Z87.891 Personal history of nicotine dependence; Z88.8 Allergy status to other drugs, medicaments and biological substances; Z79.899 Other long term (current) drug therapy; W19.XXXA Unspecified fall, initial encounter
CPT/HCPCS: 73110; 73590; 99283; 96372 ×2; J2270; J1885

== ENCOUNTER 2023-02-12 14:15 | Emergency (ER) | payer OTHER ==
[2023-02-12] MEDS ORDERED: KETOROLAC 15 MG/ML 1 ML VIAL IM STA (16:13)
[2023-02-12] MEDS ORDERED: DIPH,PERTUS(ACELL)TETVAC-LF 0.5 ML VIAL IM ONE (16:17)
[2023-02-12] MEDS ORDERED: MORPHINE SULFATE 4 MG/ML SYRINGE IM STA (16:27)
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
--- NOTE | 2023-02-12 17:19 | XR ---
EXAMINATION TYPE: XR ankle complete LT DATE OF EXAM: 02/12/2023 COMPARISON: None HISTORY: Left ankle pain, bruising TECHNIQUE: 3 view left ankle FINDINGS: No acute fracture or dislocation is evident. Ankle mortise is intact. Soft tissues are norm al. Follow-up exam can be performed 7-10 days from acute trauma for continued pain. IMPRESSION: 1. No acute osseous abnormality left ankle
[2023-02-12] MEDS ORDERED: ACET/COD 300 MG/30 MG STARTER PACK 6 TAB BTL PO STA (17:44)
[2023-02-12 18:06] VITALS: BP 160/68; PULSE 85; RESP 18; TEMP 97.9
== END 2023-02-12 18:04 | disposition home or self-care (01) ==
LOC: EC 14:15
DX: M25.572 Pain in left ankle and joints of left foot (principal); E11.9 Type 2 diabetes mellitus without complications; I10 Essential (primary) hypertension; E78.5 Hyperlipidemia, unspecified; M19.90 Unspecified osteoarthritis, unspecified site; Z79.899 Other long term (current) drug therapy; Z88.8 Allergy status to other drugs, medicaments and biological substances; Z87.891 Personal history of nicotine dependence
CPT/HCPCS: 73610; 99283; 96372; J2270

== ENCOUNTER 2023-02-20 10:25 | Emergency (ER) | payer OTHER ==
[2023-02-20 10:44] VITALS: RESP 16; TEMP 98.1
[2023-02-20] MEDS ORDERED: KETOROLAC 15 MG/ML 1 ML VIAL IM STA (10:47)
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
[2023-02-20 11:57] VITALS: BP 130/76; PULSE 98
== END 2023-02-20 11:57 | disposition home or self-care (01) ==
LOC: EC 10:25
DX: S93.402A Sprain of unspecified ligament of left ankle, initial encounter (principal); E11.9 Type 2 diabetes mellitus without complications; I10 Essential (primary) hypertension; E78.5 Hyperlipidemia, unspecified; M19.90 Unspecified osteoarthritis, unspecified site; Z87.891 Personal history of nicotine dependence; Z79.899 Other long term (current) drug therapy; Z88.8 Allergy status to other drugs, medicaments and biological substances; W18.30XA Fall on same level, unspecified, initial encounter
CPT/HCPCS: 99283; 96372; J1885

== ENCOUNTER 2023-02-23 08:20 | Emergency (ER) | payer OTHER ==
[2023-02-23 08:35] VITALS: TEMP 98.7
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
[2023-02-23 09:28] VITALS: BP 125/73; PULSE 82; RESP 20
== END 2023-02-23 09:27 | disposition home or self-care (01) ==
LOC: EC 08:20
DX: S90.02XA Contusion of left ankle, initial encounter (principal); E78.5 Hyperlipidemia, unspecified; E11.9 Type 2 diabetes mellitus without complications; I10 Essential (primary) hypertension; M19.90 Unspecified osteoarthritis, unspecified site; Z87.891 Personal history of nicotine dependence; Z88.8 Allergy status to other drugs, medicaments and biological substances; Z79.1 Long term (current) use of non-steroidal anti-inflammatories (NSAID); Z79.899 Other long term (current) drug therapy; W18.30XA Fall on same level, unspecified, initial encounter
CPT/HCPCS: 99283

== ENCOUNTER 2023-02-25 17:40 | Emergency (ER) | payer OTHER ==
[2023-02-25 18:10] VITALS: BP 118/70; PULSE 77; RESP 18; TEMP 98.6
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
--- NOTE | 2023-02-25 20:24 | US ---
EXAMINATION TYPE: US venous doppler duplex LE LT DATE OF EXAM: 02/25/2023 8:01 PM COMPARISON: NONE CLINICAL INDICATION: Female, 72 years old with history of dvt; fall 02/03/2023 on [place], pain still in [place], no h/o dvt SIDE PERFORMED: Left TECHNIQUE: The lower extremity deep venous system is examined utilizing real time linear array sonog honorio with graded compression, doppler sonography and color-flow sonography. VESSELS IMAGED: Common Femoral Vein Deep Femoral Vein Greater Saphenous Vein * Femoral Vein Popliteal Vein Small Saphenous Vein * Proximal Calf Veins (* superficial vessels) Left Leg: Negative for DVT IMPRESSION: Grayscale, color doppler, spectral doppler imaging performed of the deep veins of the lo wer extremities. There is normal flow, compressibility, vascular waveforms.
== END 2023-02-25 20:54 | disposition home or self-care (01) ==
LOC: EC 17:40
DX: S93.402A Sprain of unspecified ligament of left ankle, initial encounter (principal); M79.605 Pain in left leg; E78.5 Hyperlipidemia, unspecified; I10 Essential (primary) hypertension; M19.90 Unspecified osteoarthritis, unspecified site; E11.9 Type 2 diabetes mellitus without complications; Z87.891 Personal history of nicotine dependence; Z88.8 Allergy status to other drugs, medicaments and biological substances; Z79.899 Other long term (current) drug therapy; X58.XXXA Exposure to other specified factors, initial encounter
CPT/HCPCS: 99283

== ENCOUNTER → 2023-04-30 | Outpatient (CLI) | payer OTHER ==
[2023-04-30 12:53] LABS: African American GFR (CKD) >90 (>60 ml/min/1.73 sqM); Blood Urea Nitrogen 21 mg/dL (7-17); Non-African American GFR(CKD) 82 (>60 ml/min/1.73 sqM)
--- NOTE | 2023-04-30 13:45 | CT ---
CT left lower extremity HISTORY: Left tib-fib pain and history of tumor removal 4 years ago. COMPARISON: None. TECHNIQUE: Multiple axial images are obtained through the left tibia and fibula following nonionic IV contrast administration. FINDINGS: The left tibia and fibula are intact without intraosseous abnormality, cortical disruption or periost eal reaction. Soft tissues unremarkable without evidence of mass or pathological enhancement. There is chondrocalcinosis of both the medial lateral compartment the knee with mild hypertrophic spu rring of the margins consistent with mild CPPD disease of the knee. IMPRESSION: 1. No focal abnormality within the left tibia and fibula were within the soft tissues lower leg. 2. Degenerative changes in the as described.
== END | disposition home or self-care (01) ==
LOC: RADCTMAIN 11:34
DX: M19.072 Primary osteoarthritis, left ankle and foot (principal); M79.605 Pain in left leg
CPT/HCPCS: 82565; 84520; 73702; Q9967

== ENCOUNTER → 2023-04-30 | Outpatient (CLI) | payer OTHER | END | disposition home or self-care (01) | LOC: RADUSWWP 10:52 | PROVIDERS: ATTEND Family Medicine | DX: Z53.9 Procedure and treatment not carried out, unspecified reason (principal) ==

== ENCOUNTER 2023-07-25 09:16 | Emergency (ER) | payer OTHER ==
--- NOTE | 2023-07-25 10:07 | XR ---
EXAMINATION TYPE: XR chest 2V DATE OF EXAM: 07/25/2023 COMPARISON: 09/27/2014 HISTORY: Shortness of breath TECHNIQUE: Frontal and lateral views of the chest are obtained. FINDINGS: Scattered senescent parenchymal changes noted. Hyperinflation compatible with COPD. No evidence for infiltrate. No evidence for atelectasis. Heart size is stable. Mediastinal structures are stable and grossly unremarkable. No evidence for hilar prominence. Degenerative changes dorsal spine. IMPRESSION: 1. No evidence for acute pulmonary disease.
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
[2023-07-25 11:01] LABS: Basophils # (A) 0.1 k/uL (0-0.2); Basophils % (A) 1 %; Eosinophils # (A) 0.1 k/uL (0-0.7); Eosinophils % (A) 1 %; HCT 43.5 % (34.0-46.0); HGB 14.5 gm/dL (11.4-16.0); Lymphocytes # (A) 1.7 k/uL (1.0-4.8); Lymphocytes % (A) 15 %; MCH 29.4 pg (25.0-35.0); MCHC 33.4 g/dL (31.0-37.0); MCV 87.9 fL (80.0-100.0); Mean Platelet Volume 8.7; Monocytes # (A) 0.7 k/uL (0-1.0); Monocytes % (A) 7 %; Neutrophils # (A) 8.5 k/uL (1.3-7.7); Neutrophils % (A) 76 %; Platelet Count 285 k/uL (150-450); RBC 4.95 m/uL (3.80-5.40); RDW 13.7 % (11.5-15.5); WBC 11.3 k/uL (3.8-10.6)
[2023-07-25 11:06] LABS: ALT 23 U/L (4-34); AST 39 U/L (14-36); African American GFR (CKD) >90 (>60 ml/min/1.73 sqM); Albumin 4.5 g/dL (3.5-5.0); Alkaline Phosphatase 62 U/L (38-126); Anion Gap 17 mmol/L; Blood Urea Nitrogen 31 mg/dL (7-17); Calcium 9.9 mg/dL (8.4-10.2); Carbon Dioxide 17 mmol/L (22-30); Chloride 105 mmol/L (98-107); Glucose 113 mg/dL (74-99); Non-African American GFR(CKD) 85 (>60 ml/min/1.73 sqM); Potassium 3.7 mmol/L (3.5-5.1); Sodium 139 mmol/L (137-145); Total Bilirubin 0.7 mg/dL (0.2-1.3)
--- NOTE | 2023-07-25 11:38 | CT ---
EXAMINATION TYPE: CT brain wo con DATE OF EXAM: 07/25/2023 COMPARISON: 01/14/2023 HISTORY: multiple falls, head injury, hx dementia CT DLP: 1099.[address] of the brain was performed. The ventricles, basal cisterns and sulci overlying the cerebral convexities demonstrate mild enlargem ent. There is no evidence for intracranial hemorrhage or sulcal effacement. There is decreased attenuation about the periventricular white matter and deep white matter of both c erebral hemispheres, compatible with chronic small vessel ischemia. Differential diagnosis does inclu de demyelination. No mass effects are seen.No midline shift. Osseous calvarium is intact. If symptoms persist consider MRI. IMPRESSION: 1. Age related atrophic and chronic small vessel ischemic change without acute intracranial process s een at this time.
--- NOTE | 2023-07-25 12:03 | XR ---
EXAMINATION TYPE: XR shoulder complete LT DATE OF EXAM: 07/25/2023 CLINICAL HISTORY: pain COMPARISON: NONE TECHNIQUE: Three views of the left shoulder are obtained. FINDINGS: There is no acute fracture/dislocation evident. The acromioclavicular and glenohumeral lio int spaces appear within normal limits. The visualized ribs are intact and unremarkable. IMPRESSION: 1. There is no acute fracture or dislocation. ICD 10 NO FRACTURE, INITIAL EVALUATION
--- NOTE | 2023-07-25 12:06 | XR ---
EXAMINATION TYPE: XR sacrum coccyx DATE OF EXAM: 07/25/2023 CLINICAL HISTORY: pain TECHNIQUE: Three views of the sacrum and coccyx are submitted. COMPARISON: none Sacral alae appear symmetric. No evidence for fracture or bony lesion. Sacroiliac joints are within normal limits. Visualized coccygeal segments are free of fracture or lesion. IMPRESSION: Normal study
[2023-07-25 14:45] LABS: Color,Urine Yellow
[2023-07-25 14:46] LABS: Appearance,Urine Clear (Clear); Bilirubin,Urine Negative (Negative); Blood,Urine Negative (Negative); Glucose,Urine (UA) Negative (Negative); Ketones,Urine 1+ (Negative); Leukocyte Esterase,Urine Negative (Negative); Nitrite,Urine Negative (Negative); PH, Urine 6.5 (5.0-8.0); Protein,Urine Trace (Negative); Urobilinogen,Urine 0.2 mg/dL (<2.0)
[2023-07-25 14:51] LABS: Hyaline Casts,Urine 3 /lpf (0-2); RBC,Urine <1 /hpf (0-5); Squamous Epithelial Cell,Urine <1 /hpf (0-4); WBC,Urine 1 /hpf (0-5)
[2023-07-25 16:00] VITALS: BP 164/94; PULSE 77; RESP 16; TEMP 98.1
== END 2023-07-25 16:30 | disposition home or self-care (01) ==
LOC: EC 09:16
DX: F03.90 Unspecified dementia, unspecified severity, without behavioral disturbance, psychotic disturbance, mood disturbance, and anxiety (principal); E78.5 Hyperlipidemia, unspecified; I10 Essential (primary) hypertension; M19.90 Unspecified osteoarthritis, unspecified site; E11.9 Type 2 diabetes mellitus without complications; R29.6 Repeated falls; Z87.891 Personal history of nicotine dependence; Z88.8 Allergy status to other drugs, medicaments and biological substances; Z79.899 Other long term (current) drug therapy; Z20.822 Contact with and (suspected) exposure to COVID-19
CPT/HCPCS: 36415; 70450; 71046; 72220; 80053; 81003; 85025; 87636; 93005; 99285

== ENCOUNTER 2023-09-16 23:35 | Emergency (ER) | payer OTHER, MEDICARE ==
[2023-09-16 23:55] VITALS: RESP 18; TEMP 98
[2023-09-17] MEDS: ASPIRIN 81 MG PO STA (00:21)
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
[2023-09-17] MEDS: MORPHINE SULFATE 4 MG/ML SYRINGE IV STA (00:22)
[2023-09-17 00:39] LABS: Basophils # (A) 0.1 k/uL (0-0.2); Basophils % (A) 1 %; Eosinophils # (A) 0.2 k/uL (0-0.7); Eosinophils % (A) 2 %; HCT 40.1 % (34.0-46.0); HGB 13.1 gm/dL (11.4-16.0); Lymphocytes % (A) 33 %; MCHC 32.6 g/dL (31.0-37.0); MCV 85.8 fL (80.0-100.0); Mean Platelet Volume 8.2; Monocytes # (A) 0.7 k/uL (0-1.0); Monocytes % (A) 7 %; Neutrophils # (A) 4.9 k/uL (1.3-7.7); Neutrophils % (A) 54 %; Platelet Count 304 k/uL (150-450); RBC 4.67 m/uL (3.80-5.40); RDW 13.8 % (11.5-15.5); WBC 9.1 k/uL (3.8-10.6)
[2023-09-17 00:44] LABS: ALT 32 U/L (4-34); AST 36 U/L (14-36); African American GFR (CKD) >90 (>60 ml/min/1.73 sqM); Albumin 4.2 g/dL (3.5-5.0); Alkaline Phosphatase 53 U/L (38-126); Anion Gap 10 mmol/L; Blood Urea Nitrogen 17 mg/dL (7-17); Calcium 9.6 mg/dL (8.4-10.2); Carbon Dioxide 22 mmol/L (22-30); Chloride 109 mmol/L (98-107); Glucose 118 mg/dL (74-99); Non-African American GFR(CKD) 88 (>60 ml/min/1.73 sqM); Potassium 3.8 mmol/L (3.5-5.1); Sodium 141 mmol/L (137-145); Total Bilirubin 0.4 mg/dL (0.2-1.3); Total Protein 7.3 g/dL (6.3-8.2)
--- NOTE | 2023-09-17 00:51 | XR ---
EXAMINATION TYPE: XR chest 2V DATE OF EXAM: 09/17/2023 COMPARISON: Chest x-ray July 25, 2023 HISTORY: Chest pain with hypertension TECHNIQUE: Frontal and lateral views of the chest are obtained. FINDINGS: There is no suspicious new focal air space opacity, pleural effusion, or pneumothorax seen . The cardiac silhouette size remains within normal limits. Surgical changes in the cervical spine a re redemonstrated. IMPRESSION: No acute cardiopulmonary process. No significant change from prior.
[2023-09-17 01:06] LABS: INR 0.9 (<1.2); Partial Thromboplastin Time 23.3 sec (22.0-30.0); Prothrombin Time 10.4 sec (10.0-12.5)
[2023-09-17 03:24] VITALS: BP 138/72; PULSE 68
== END 2023-09-17 03:29 | disposition home or self-care (01) ==
LOC: EC 23:35
DX: R07.89 Other chest pain (principal); I10 Essential (primary) hypertension; E11.40 Type 2 diabetes mellitus with diabetic neuropathy, unspecified; E78.5 Hyperlipidemia, unspecified; M19.90 Unspecified osteoarthritis, unspecified site; Z79.899 Other long term (current) drug therapy; Z88.8 Allergy status to other drugs, medicaments and biological substances; Z98.41 Cataract extraction status, right eye; Z87.891 Personal history of nicotine dependence
CPT/HCPCS: 36415; 93005; 80053; 83735; 84484; 85025; 85610; 85730; 71046; 99285; 96374; J2270

== ENCOUNTER 2023-10-14 23:44 | Emergency (ER) | payer OTHER, MEDICARE ==
[2023-10-15 00:13] VITALS: RESP 18; TEMP 97.8
[2023-10-15 00:18] LABS: Basophils # (A) 0.1 k/uL (0-0.2); Basophils % (A) 1 %; Eosinophils # (A) 0.2 k/uL (0-0.7); Eosinophils % (A) 3 %; HCT 36.1 % (34.0-46.0); HGB 12.1 gm/dL (11.4-16.0); Lymphocytes # (A) 2.4 k/uL (1.0-4.8); Lymphocytes % (A) 35 %; MCH 29.5 pg (25.0-35.0); MCHC 33.5 g/dL (31.0-37.0); MCV 88.2 fL (80.0-100.0); Mean Platelet Volume 7.6; Monocytes # (A) 0.5 k/uL (0-1.0); Monocytes % (A) 8 %; Neutrophils # (A) 3.4 k/uL (1.3-7.7); Neutrophils % (A) 50 %; Platelet Count 300 k/uL (150-450); RBC 4.09 m/uL (3.80-5.40); RDW 13.9 % (11.5-15.5); WBC 6.8 k/uL (3.8-10.6)
--- NOTE | 2023-10-15 00:25 | XR ---
EXAM: XR Chest, 2 Views CLINICAL HISTORY: ITS.REASON XR Reason: Chest Pain TECHNIQUE: Frontal and lateral views of the chest. COMPARISON: Chest radiograph 10/11/2023. FINDINGS: Lungs: Unremarkable. No consolidation. Pleural space: Unremarkable. No pneumothorax. Heart: Unremarkable. No cardiomegaly. Mediastinum: Unremarkable. Normal mediastinal contour. Bones/joints: Degenerative change of the spine. No acute fracture. Vasculature: Atherosclerotic calcification in aorta. IMPRESSION: No radiographic evidence of acute cardiopulmonary abnormality.
[2023-10-15 00:29] LABS: ALT 19 U/L (4-34); AST 28 U/L (14-36); African American GFR (CKD) >90 (>60 ml/min/1.73 sqM); Albumin 3.7 g/dL (3.5-5.0); Alkaline Phosphatase 56 U/L (38-126); Anion Gap 4 mmol/L; Blood Urea Nitrogen 17 mg/dL (7-17); Calcium 9.3 mg/dL (8.4-10.2); Carbon Dioxide 24 mmol/L (22-30); Chloride 111 mmol/L (98-107); Glucose 131 mg/dL (74-99); Magnesium 1.9 mg/dL (1.6-2.3); Non-African American GFR(CKD) >90 (>60 ml/min/1.73 sqM); Potassium 4.1 mmol/L (3.5-5.1); Sodium 139 mmol/L (137-145); Total Bilirubin 0.3 mg/dL (0.2-1.3); Total Protein 6.3 g/dL (6.3-8.2)
[2023-10-15 00:38] LABS: INR 0.9 (<1.2); Partial Thromboplastin Time 23.7 sec (22.0-30.0); Prothrombin Time 9.7 sec (10.0-12.5)
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
[2023-10-15] MEDS: ASPIRIN 81 MG PO STA (01:48)
[2023-10-15] MEDS: METOPROLOL TARTRATE 25 MG TAB PO STA (01:50)
[2023-10-15 02:35] VITALS: BP 131/66; PULSE 75
[2023-10-15] MEDS: MORPHINE SULFATE 4 MG/ML SYRINGE IV STA (02:57)
== END 2023-10-15 03:02 | disposition home or self-care (01) ==
LOC: EC 23:44
DX: I10 Essential (primary) hypertension (principal); R07.89 Other chest pain; E11.9 Type 2 diabetes mellitus without complications; Z87.891 Personal history of nicotine dependence; Z79.899 Other long term (current) drug therapy; Z88.8 Allergy status to other drugs, medicaments and biological substances
CPT/HCPCS: 36415; 93005; 80053; 83735; 84484; 85025; 85610; 85730; 71046; 99285; 96374; J2270

== ENCOUNTER 2023-11-07 03:17 | Emergency (ER) | payer OTHER, MEDICARE ==
[2023-11-07 03:27] LABS: Glucose,Whole Blood 150 mg/dL (70-110)
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
[2023-11-07 03:53] VITALS: RESP 18; TEMP 98.3
[2023-11-07 05:05] VITALS: BP 118/62; PULSE 70
== END 2023-11-07 04:41 | disposition home or self-care (01) ==
LOC: EC 03:17
DX: Z04.1 Encounter for examination and observation following transport accident (principal); Z87.891 Personal history of nicotine dependence; Z88.8 Allergy status to other drugs, medicaments and biological substances
CPT/HCPCS: 36415; 99285

== ENCOUNTER 2023-11-24 05:36 | Inpatient (IN) | payer OTHER, MEDICARE ==
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
[2023-11-24 06:18] LABS: Basophils # (A) 0.1 k/uL (0-0.2); Basophils % (A) 1 %; Eosinophils # (A) 0.1 k/uL (0-0.7); Eosinophils % (A) 1 %; HCT 41.8 % (34.0-46.0); HGB 13.2 gm/dL (11.4-16.0); Lymphocytes # (A) 2.2 k/uL (1.0-4.8); Lymphocytes % (A) 27 %; MCH 28.1 pg (25.0-35.0); MCHC 31.7 g/dL (31.0-37.0); MCV 88.7 fL (80.0-100.0); Mean Platelet Volume 7.9; Monocytes # (A) 0.6 k/uL (0-1.0); Monocytes % (A) 7 %; Neutrophils # (A) 5.1 k/uL (1.3-7.7); Neutrophils % (A) 62 %; Platelet Count 345 k/uL (150-450); RBC 4.71 m/uL (3.80-5.40); RDW 13.7 % (11.5-15.5); WBC 8.3 k/uL (3.8-10.6)
[2023-11-24 06:28] LABS: INR 0.9 (<1.2); Partial Thromboplastin Time 24.1 sec (22.0-30.0); Prothrombin Time 10.4 sec (10.0-12.5)
[2023-11-24 06:46] LABS: ALT 21 U/L (4-34); AST 32 U/L (14-36); African American GFR (CKD) >90 (>60 ml/min/1.73 sqM); Albumin 4.2 g/dL (3.5-5.0); Alkaline Phosphatase 56 U/L (38-126); Anion Gap 8 mmol/L; Blood Urea Nitrogen 18 mg/dL (7-17); Calcium 9.9 mg/dL (8.4-10.2); Carbon Dioxide 26 mmol/L (22-30); Chloride 105 mmol/L (98-107); Glucose 115 mg/dL (74-99); Non-African American GFR(CKD) 85 (>60 ml/min/1.73 sqM); Sodium 139 mmol/L (137-145); Total Bilirubin 0.5 mg/dL (0.2-1.3); Total Protein 7.3 g/dL (6.3-8.2)
--- NOTE | 2023-11-24 07:23 | XR ---
EXAMINATION TYPE: XR chest 2V DATE OF EXAM: 11/24/2023 6:22 AM CLINICAL INDICATION:Female, 73 years old with history of Chest Pain; [facility] COMPARISON: 10/15/2023 and 10/11/2023 TECHNIQUE: XR chest 2V. Frontal and lateral views of the chest.. FINDINGS: Lines/Tubes/Devices: No indwelling lines are seen. Some extraneous densities are present. Heart/mediastinum: Heart size is normal. Stable mediastinum. No abnormal hilar enlargement. Pulmonary vascularity: Not increased, Lungs/Pleura: Similar appearance of mild diffuse interstitial coarsening with mild hyperinflation com patible with chronic changes. There is no evidence of pleural effusion, focal consolidation, or pneum othorax. Musculoskeletal: No acute osseous abnormality demonstrated in the limits of the exam. Mild chronic d egenerative changes again noted. There is a slightly widened appearance of the right AC joint, chroni c in appearance, could be from prior trauma, surgery, or resorption. Fusion hardware again seen over the lower cervical spine. Other findings: None. IMPRESSION: No acute findings, or significant interval change.
[2023-11-24] MEDS: ASPIRIN 81 MG PO STA (08:31)
[2023-11-24] MEDS: NITROGLYCERIN SL TABS 0.4 MG TAB SUBLINGUAL PRN (08:31)
[2023-11-24] MEDS: NITROGLYCERIN OINT 1 INCH/GM PACKET TOPICAL SCH (08:51)
[2023-11-24] MEDS ORDERED: DEXTROSE 50% SYRINGE 50 ML IVP PRN ×2 (09:09)
[2023-11-24] MEDS: PREGABALIN 100 MG CAP PO SCH (10:28)
[2023-11-24] MEDS: DULoxetine HCL 60 MG CAPSULE.DR PO SCH (10:29)
[2023-11-24] MEDS: DONEPEZIL 5 MG TAB PO SCH (10:29)
[2023-11-24] MEDS: atenoloL 25 MG TAB PO SCH (10:30)
[2023-11-24] MEDS: LEVOTHYROXINE 50 MCG TAB PO SCH (10:30)
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
[2023-11-24 12:23] LABS: Glucose,Whole Blood 96 mg/dL (70-110)
[2023-11-24] MEDS: INSULIN ASPART (NovoLOG) 100 UNIT/ML VIAL SQ SCH (12:31)
[2023-11-24] MEDS ORDERED: ONDANSETRON 4 MG/2 ML VIAL IVP PRN (14:32)
[2023-11-24 18:01] LABS: Glucose,Whole Blood 81 mg/dL (70-110)
[2023-11-24 20:46] LABS: Glucose,Whole Blood 152 mg/dL (70-110)
[2023-11-24] MEDS: DULoxetine HCL 30 MG CAPSULE.DR PO SCH (20:52)
[2023-11-24] MEDS: traZODone HCL 50 MG TAB PO SCH (20:52)
[2023-11-24] MEDS: HYDROcodone/APAP 5-325MG 1 EACH TAB PO PRN (23:48)
[2023-11-25 05:56] LABS: Glucose,Whole Blood 115 mg/dL (70-110)
[2023-11-25] MEDS ORDERED: DOBUTamine DRIP for NUC MED 500 MG in DEXTROSE/WATER 1 250ML.BAG IV PRN (07:39)
[2023-11-25] MEDS: ENOXAPARIN 40 MG/0.4 ML SYRINGE SQ SCH (08:35)
[2023-11-25] MEDS: ASPIRIN 325 MG TAB PO SCH (08:35)
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
--- NOTE | 2023-11-25 10:37 | XR ---
EXAMINATION TYPE: XR foot complete RT DATE OF EXAM: 11/25/2023 COMPARISON: None HISTORY: Pain TECHNIQUE: 3 view right foot FINDINGS: Hallux valgus deformity is present. There is varus deformity of the fourth distal digits. J oint spaces appear preserved. No acute fractures or dislocations evident. Achilles tendon calcaneal h eel spur is present. Tiny plantar calcaneal heel spur is present. Soft tissues are unremarkable. Follow up exams can be performed 7-10 days from acute trauma for continued pain. IMPRESSION: 1. No acute osseous abnormality right foot. 2. Calcaneal heel spurs. 3. Deviation of the digits discussed above
--- NOTE | 2023-11-25 11:18 | P.PN ---
Subjective Progress Note Date: 11/25/23 73 year old F with PMH of hypothyroidism, HLD, HTN, dementia, diabetes mellitus presents to the ED for chest pain. Chest pain on and off for the past 2-3 days. More recently started at 930PM. Left sided, throbbing and stabbing in nature, non radiating. Aggravated with deep inspiration and movement. No associated SOB, diaphoresis, nausea or vomiting. Reports stress test was scheduled in the outpatient setting but cancelled for unknown reason. In the ED, she underwent extensive evaluation. BP 112/71 HR 69 RR 18 T98.3F 98% on RA. CBC, Coag panel, CMP was done remarkable for BUN 18, glu 115. Mag 2.0. Troponin < 0.012. EKG sinus rhythm with PVCs. CXR negative for acute findings. She is admitted for chest pain, rule out ACS and Cardiology evaluation. 11/24 Patient was seen and examined. Chest pain improved per patient. She reports right foot pain. Troponins trended and ACS ruled out. Cardiology consulted, recommends stress test. EKG done today shows NSR. General: non toxic, no distress, appears at stated age Derm: warm, dry Head: atraumatic, normocephalic, symmetric Eyes: EOMI, no lid lag, anicteric sclera Mouth: no lip lesion, mucus membranes moist Cardiovascular: S1S2 reg, no murmur, TTP left chest wall Lungs: CTA bilateral, no rhonchi, no rales , no accessory muscle use Ext: no gross muscle atrophy, no edema, no contractures, R foot TTP with erythema along the lateral aspect of the foot. Neuro: no focal neuro deficits Psych: Alert, oriented, appropriate affect Based on my assessment of this patient, this patient meets a high complexity level of care. Patient has an acute diagnosis of chest pain that poses a threat to life or bodily function. Chest pain: Appears MSK. Status post ASA 325 mg PO x 1. ACS ruled out. Continue ASA 81 mg PO QD. Telemetry monitoring. Cardiology consulted, plans for stress test. Right foot pain: Obtain foot XR. Obtain Uric Acid. CODE STATUS: FULL CODE DVT Prophylaxis: Lovenox GI Prophylaxis: Designated medical POA if patient is not able to make medical decisions for themselves: I have reviewed the following compensation consultant notes: Cardiology I have reviewed the results of the following tests: Troponin x 2. I have ordered the following tests: Foot XR. Uric acid. I have discussed the care of this patient with the following independent his stephanie: RN and case management. I have independently interpreted the following test below: EKG I have discussed the management of this patient with the following physician: Objective - Vital Signs Vital signs: Vital Signs Temp 97.7 F 11/25/23 07:00 Pulse 76 11/25/23 08:00 Resp 15 11/25/23 08:00 BP 106/68 11/25/23 07:52 Pulse Ox 95 11/25/23 07:00 FiO2 Intake & Output 11/24/23 11/25/23 11/25/23 18:59 06:59 18:59 Weight 72.575 kg Other: Voiding Method Toilet # Voids 2 - Labs CBC & Chem 7: 11/24/23 06:00 11/24/23 06:00 Labs: Abnormal Lab Results - Last 24 Hours (Table) 11/24/23 11/25/23 Range/Units 20:45 05:54 POC Glucose (mg/dL) 152 H 115 H (70-110) mg/dL
[2023-11-25 11:35] LABS: Chol/HDL Ratio 4.07 Ratio; LDL Cholesterol,Calculated 127.6 mg/dL (0.0-131.0)
[2023-11-25 11:55] LABS: Glucose,Whole Blood 94 mg/dL (70-110)
[2023-11-25 17:27] LABS: Glucose,Whole Blood 114 mg/dL (70-110)
--- NOTE | 2023-11-25 18:07 | CA ---
Dobutamine Stress Echocardiogram Report Shabnam Perez Age: 73 Gender: F : 1950 Exam Date: 11/25/2023 11:09 Exam Location: [facility] Ordering Physician: Chuy Ibarra MD ([id number]) Referring Physician: Stacey JACKSON Photography Editor: ARTURO, Technologist: Ht (in): 64 Wt (lb): 160 Procedure CPT: Indication: CP ICD-9 Codes: Rhythm: Patient History: Chest pain Shortness of breath and palpitations. Cardiac Medications: Medications in past 24 hours: Contrast: Total Dose (mL): Stress Results Protocol: Dobutamine Peak Dose (???g/kg/min): 40 Duration (min:sec): Atropine:(mg) Target HR: 124 Double Product: [id number] Resting HR: 64 Resting BP: 122 / 69 Peak HR: 128 Peak BP: 131 / 50 Max Predicted HR: 146 88 % Max Predicted HR Stress Summary: BP Response: Reason for Termination: Exceeded target heart rate (85% max predicted) Cardiac Symptoms: No Symptoms ECG Analysis Resting EKG: Normal sinus rhythm normal axis normal intervals Stress EKG: Patient was given intravenous dobutamine or a period of 12 minutes as per protocol achieving 85% of predicted maximal heart rate without chest pain or diagnostic ST segment depression Arrhythmia: None Echo Analysis Base Echo Analysis: Normal Low Echo Anaylsis: Normal hyperdynamic response Peak Echo Analysis: Normal hyperdynamic response Recovery Echo: Normal MEASUREMENTS (Male/Female) Normal Values CONCLUSIONS Negative stress test by EKG criteria Negative dobutamine stress echo Dr. Chuy Ibarra MD (Electronically Signed) Final Date: 25 November 2023 18:06
[2023-11-25] MEDS ORDERED: MORPHINE SULFATE 2 MG/ML SYRINGE IVP PRN (19:00)
[2023-11-25 20:32] LABS: Glucose,Whole Blood 115 mg/dL (70-110)
[2023-11-26 05:56] LABS: Glucose,Whole Blood 155 mg/dL (70-110)
[2023-11-26 07:59] VITALS: BP 124/79; PULSE 79; RESP 17; TEMP 97.8
[2023-11-26] MEDS: ASPIRIN 81 MG PO SCH (10:04)
--- NOTE | 2023-11-26 10:48 | P.DS ---
Providers Date of admission: 11/24/23 08:12 Expected date of discharge: 11/26/23 Attending physician: Lea Sanchez MD Consults: 11/24/23 08:12 Consult Physician Urgent Consulting Provider: [facility] Consult Reason/Comments: Chest pain Do you want consulting provider notified?: Yes Primary care physician: [facility] Course: Discharge Diagnosis: Atypical chest pain Hypertension Paroxysmal atrial tachycardia Type 2 diabetes Hypertension Dyslipidemia Hospital Course: 73 year old F with PMH of hypothyroidism, HLD, HTN, dementia, diabetes mellitus presents to the ED for chest pain. In the ED, she underwent extensive evaluation. BP 112/71 HR 69 RR 18 T98.3F 98% on RA. CBC, Coag panel, CMP was done remarkable for BUN 18, glu 115. Mag 2.0. Troponin < 0.012. EKG sinus rhythm with PVCs. CXR negative for acute findings. She is admitted for chest pain, rule out ACS and Cardiology evaluation. Also reporting right foot pain. Right foot x-ray did not show any acute fractures. Patient underwent dobutamine stress echo which was negative for any ischemia. Patient being discharged home with follow-up with cardiology. Patient seen and examined at bedside. Vital signs reviewed and stable. General: Nontoxic, no distress, appears at stated age Derm: Warm, dry Head: Atraumatic, normocephalic, symmetric Eyes: EOMI, no lid lag, anicteric sclera Mouth: No lip lesion, mucus membranes moist Cardiovascular: S1S2 reg, no murmur Lungs: CTA bilateral, no rhonchi, no rales, no accessory muscle use Abdominal: Soft, nontender to palpation, no guarding, no appreciable organomegaly Ext: No gross muscle atrophy, no edema, no contractures Neuro: CN II-XI grossly intact, no focal neuro deficits Psych: Alert, oriented, appropriate affect A total of 33 minutes of time were spent preparing this complex discharge summary. Patient was discharged on 11/26/2023 at 934. Patient Condition at Discharge: Stable Plan - Discharge Summary New Discharge Prescriptions: New Aspirin 81 mg PO DAILY #30 tab Continue traZODone HCL 50 mg PO HS Levothyroxine Sodium [Synthroid] 50 mcg PO DAILY DULoxetine HCL [Cymbalta] 30 mg PO HS Donepezil [Aricept] 10 mg PO DAILY Krill/[place]-3/Dha/Epa/Lipids [Krill Oil 350 mg Softgel] 1 cap PO DAILY atenoloL [Tenormin] 25 mg PO DAILY Lidocaine 4% Cream 1 applic TOPICAL BID PRN PRN Reason: Pain DULoxetine HCL [Cymbalta] 60 mg PO DAILY Cholecalciferol [Vitamin D3 (25 Mcg = 1000 Iu)] 25 mcg PO DAILY Pregabalin [Lyrica] 300 mg PO BID PRN PRN Reason: Pain Hydrocortisone Cream [Hydrocortisone 1% Cream] 1 applic TOPICAL BID PRN PRN Reason: rash on feet Multivitamins, Thera [Multivitamin (formulary)] 1 tab PO DAILY Beets Supplement 1 cap PO DAILY Discontinued Ibuprofen [Motrin] 800 mg PO Q8H PRN PRN Reason: pain Discharge Medication List traZODone HCL 50 mg PO HS 09/01/20 [History] DULoxetine HCL [Cymbalta] 60 mg PO DAILY 06/01/22 [History] DULoxetine HCL [Cymbalta] 30 mg PO HS 01/14/23 [History] Donepezil [Aricept] 10 mg PO DAILY 01/14/23 [History] Levothyroxine Sodium [Synthroid] 50 mcg PO DAILY 01/14/23 [History] Cholecalciferol [Vitamin D3 (25 Mcg = 1000 Iu)] 25 mcg PO DAILY 10/12/23 [Hist ory] Hydrocortisone Cream [Hydrocortisone 1% Cream] 1 applic TOPICAL BID PRN 10/12/23 [History] Krill/[place]-3/Dha/Epa/Lipids [Krill Oil 350 mg Softgel] 1 cap PO DAILY 10/12/23 [History] Lidocaine 4% Cream 1 applic TOPICAL BID PRN 10/12/23 [History] Pregabalin [Lyrica] 300 mg PO BID PRN 10/12/23 [History] atenoloL [Tenormin] 25 mg PO DAILY 10/12/23 [History] Beets Supplement 1 cap PO DAILY 11/24/23 [History] Multivitamins, Thera [Multivitamin (formulary)] 1 tab PO DAILY 11/24/23 [History] Aspirin 81 mg PO DAILY #30 tab 11/25/23 [Rx] Follow up Appointment(s)/Referral(s): Conner Santoro MD [STAFF PHYSICIAN] - 12/06/23 9:45 am [facility] [NON-STAFF] - 1 Week [facility] [Primary Care Provider] - 1-2 days Patient Instructions/Handouts: Chest Pain (DC) Discharge Disposition: HOME SELF-CARE
--- NOTE | 2023-11-26 15:17 | P.PN ---
Subjective Progress Note Date: 11/26/23 History of present illness: This is a 73-year-old female patient of Dr. Santoro with past medical history of hypertension, paroxysmal atrial tachycardia, dyslipidemia, mild LVH, diabetes mellitus type 2. We have been asked to evaluate the patient for chest pain. Patient was recently seen in the hospital by cardiology regarding chest discomfort on 10/11/2023. At that time she had an abnormal D-dimer and CTA of the chest negative for pulmonary embolism. Patient now presents with chest pain that was a pressure type sensation in the center of her chest without radiation. She also had shortness of breath, nausea, vomiting, diaphoresis. She took 4 aspirin and 1 nitroglycerin by EMS. EKG sinus rhythm with no acute ST-T wave changes. Chest x-ray: No acute findings. CBC, INR, electrolytes all within normal limits. BUN 18 creatinine 0.71. Blood sugar 152. Troponin negative x 3. Liver function test are normal. Magnesium 2.0. Home cardiac medications: Atenolol 25 mg daily, also on levothyroxine 50 mcg daily Echocardiogram performed 10/12/2023 reveals EF of 55 to 60%. 11/25 Yesterday, patient underwent dobutamine stress echo which was negative by EKG criteria and negative dobutamine stress echo. Patient was not discharged last night due to not having a ride available. Reviewed results of stress test with the patient. She denies having any chest pain at this time but has some heartburn type sensation. She thinks that she may have had pain related to a panic attack. Blood pressure 124/79, heart rate 79, pulse ox 98% on room air. Patient is ambulated in the hallway without any lightheadedness or dizziness, no chest pain and no shortness of breath. Physical examination: Gen: This is a 73-year-old female in no acute distress VS: reviewed blood pressure 106/68, heart rate 76, pulse ox 95% on room air. HEENT: Head is atraumatic, normocephalic. Pupils equal, round. Sclerae is a nicteric. NECK: Supple. No JVD. LUNGS: Clear to auscultation. No wheezes or rhonchi. No intercostal retractions. HEART: Regular rate and rhythm. No murmur. ABDOMEN: Soft No tenderness. EXTREMITIES: No pedal edema. No calf tenderness. NEUROLOGICAL: Patient is awake, alert and oriented x3. Assessment: Atypical chest pain, acute coronary syndrome ruled out Hypertension Paroxysmal atrial tachycardia Dyslipidemia Diabetes mellitus type 2 Mild LVH Plan: Continue patient's home cardiac medications Patient is cleared for discharge and may follow-up in the office with Dr. Santoro in 2 weeks. Thank you kindly for this consultation. Nurse practitioner note has been reviewed, I agree with documented findings and plan of care. Patient was seen and examined. Objective - Vital Signs Vital signs: Vital Signs Temp 97.8 F 11/26/23 07:17 Pulse 79 11/26/23 07:17 Resp 17 11/26/23 07:17 BP 124/79 11/26/23 07:17 Pulse Ox 98 11/26/23 07:17 FiO2 Intake & Output 11/25/23 11/26/23 11/26/23 18:59 06:59 18:59 Intake Total 0 240 Balance 0 240 Intake: Oral 0 240 Other: Voiding Method Toilet Toilet # Voids 3 2 - Labs CBC & Chem 7: 11/24/23 06:00 11/24/23 06:00 Labs: Abnormal Lab Results - Last 24 Hours (Table) 11/25/23 11/25/23 11/25/23 Range/Units 06:47 17:26 20:30 POC Glucose (mg/dL) 114 H 115 H (70-110) mg/dL Triglycerides 150.00 H (0.00-149.00) mg/dL Cholesterol 209.00 H (0.00-200.00) mg/dL 11/26/23 Range/Units 05:55 POC Glucose (mg/dL) 155 H (70-110) mg/dL Triglycerides (0.00-149.00) mg/dL Cholesterol (0.00-200.00) mg/dL
== END 2023-11-26 11:57 | disposition home or self-care (01) | DRG 313 ==
LOC: EC 05:36 → 3SCARD 08:12 → EEVIPCON 08:12 → 3SCARD 12:50 → 6NMEDSUR 15:19
PROVIDERS: ADMIT Family Medicine; ATTEND Family Medicine
DX: R07.89 Other chest pain (principal); I47.19 Other supraventricular tachycardia; E03.9 Hypothyroidism, unspecified; E78.5 Hyperlipidemia, unspecified; F03.90 Unspecified dementia, unspecified severity, without behavioral disturbance, psychotic disturbance, mood disturbance, and anxiety; F40.240 Claustrophobia; I10 Essential (primary) hypertension; K21.9 Gastro-esophageal reflux disease without esophagitis; M79.671 Pain in right foot; E11.9 Type 2 diabetes mellitus without complications; Z87.891 Personal history of nicotine dependence; Z79.890 Hormone replacement therapy; Z79.899 Other long term (current) drug therapy; Z82.49 Family history of ischemic heart disease and other diseases of the circulatory system; Z88.8 Allergy status to other drugs, medicaments and biological substances
CPT/HCPCS: 36415; 71046; 80053; 80061; 83735; 84484; 84550; 85025; 85610; 85730; 93005; 93351; 94760; 99285

== ENCOUNTER 2023-12-07 12:47 | Inpatient (IN) | payer OTHER, MEDICARE ==
[2023-12-07 13:40] LABS: Basophils # (A) 0.1 k/uL (0-0.2); Basophils % (A) 1 %; Eosinophils # (A) 0.1 k/uL (0-0.7); Eosinophils % (A) 2 %; HCT 35.5 % (34.0-46.0); HGB 11.5 gm/dL (11.4-16.0); Lymphocytes # (A) 2.4 k/uL (1.0-4.8); Lymphocytes % (A) 31 %; MCH 28.2 pg (25.0-35.0); MCHC 32.5 g/dL (31.0-37.0); MCV 86.8 fL (80.0-100.0); Mean Platelet Volume 8.2; Monocytes # (A) 0.6 k/uL (0-1.0); Monocytes % (A) 7 %; Neutrophils # (A) 4.4 k/uL (1.3-7.7); Neutrophils % (A) 57 %; Platelet Count 280 k/uL (150-450); RBC 4.09 m/uL (3.80-5.40); RDW 13.6 % (11.5-15.5); WBC 7.7 k/uL (3.8-10.6)
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
[2023-12-07 14:05] LABS: ALT 23 U/L (4-34); AST 32 U/L (14-36); African American GFR (CKD) >90 (>60 ml/min/1.73 sqM); Albumin 3.4 g/dL (3.5-5.0); Alkaline Phosphatase 46 U/L (38-126); Anion Gap 7 mmol/L; Blood Urea Nitrogen 16 mg/dL (7-17); Calcium 8.8 mg/dL (8.4-10.2); Carbon Dioxide 22 mmol/L (22-30); Chloride 113 mmol/L (98-107); Glucose 107 mg/dL (74-99); Non-African American GFR(CKD) >90 (>60 ml/min/1.73 sqM); Sodium 142 mmol/L (137-145); Total Bilirubin 0.4 mg/dL (0.2-1.3); Total Protein 6.1 g/dL (6.3-8.2)
[2023-12-07 14:13] LABS: Potassium 4.1 mmol/L (3.5-5.1)
[2023-12-07 14:25] LABS: Appearance,Urine Clear (Clear); Bilirubin,Urine Negative (Negative); Blood,Urine Negative (Negative); Color,Urine Yellow; Glucose,Urine (UA) Negative (Negative); Ketones,Urine Negative (Negative); Leukocyte Esterase,Urine Negative (Negative); Nitrite,Urine Negative (Negative); PH, Urine 6.5 (5.0-8.0); Protein,Urine Trace (Negative); Specific Gravity,Urine 1.021 (1.001-1.035); Urobilinogen,Urine <2.0 mg/dL (<2.0)
[2023-12-07] MEDS ORDERED: NALOXONE 0.4 MG/ML 1 ML VIAL IV PRN (14:37)
[2023-12-07 14:41] LABS: Amphetamine Screen,Urine Not Detected (NotDetected); Barbiturate Screen,Urine Not Detected (NotDetected); Benzodiazepines Screen,Urine Not Detected (NotDetected); Cocaine Screen,Urine Not Detected (NotDetected); Methadone Screen, Urine Not Detected (NotDetected); Opiate Screen,Urine Not Detected (NotDetected); Oxycodone Screen, Urine Not Detected (NotDetected); Phencyclidine Screen,Urine Not Detected (NotDetected); Tricyclic Antidepressant,Urine Not Detected (NotDetected); Urn Cannabinoid Scrn Not Detected (NotDetected)
[2023-12-07] MEDS ORDERED: DEXTROSE 50% SYRINGE 50 ML IVP PRN ×2 (15:09)
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
[2023-12-07 17:35] LABS: Glucose,Whole Blood 94 mg/dL (70-110)
[2023-12-07] MEDS: INSULIN ASPART (NovoLOG) 100 UNIT/ML VIAL SQ SCH (17:37)
[2023-12-07 20:18] LABS: Glucose,Whole Blood 140 mg/dL (70-110)
[2023-12-07] MEDS: traZODone HCL 50 MG TAB PO SCH (20:18)
[2023-12-07] MEDS: DULoxetine HCL 30 MG CAPSULE.DR PO SCH (20:18)
[2023-12-08] MEDS: LEVOTHYROXINE 50 MCG TAB PO SCH (06:18)
[2023-12-08 07:04] LABS: Glucose,Whole Blood 124 mg/dL (70-110)
[2023-12-08] MEDS: ENOXAPARIN 40 MG/0.4 ML SYRINGE SQ SCH (09:05)
[2023-12-08] MEDS: DONEPEZIL 10 MG TAB PO SCH (09:05)
[2023-12-08] MEDS: atenoloL 25 MG TAB PO SCH (09:05)
[2023-12-08] MEDS: CHOLECALCIFEROL 25 MCG (1000 IU) TABLET PO SCH (09:05)
[2023-12-08] MEDS: ASPIRIN 81 MG PO SCH (09:05)
[2023-12-08] MEDS: DULoxetine HCL 60 MG CAPSULE.DR PO SCH (09:05)
[2023-12-08 09:55] LABS: Basophils # (A) 0.07 X 10*3/uL (0.00-0.10); Eosinophils # (A) 0.17 X 10*3/uL (0.04-0.35); Eosinophils % (A) 2.4 %; HCT 34.1 % (37.2-46.3); HGB 10.9 g/dL (12.0-15.0); Lymphocytes # (A) 2.67 X 10*3/uL (0.90-5.00); MCH 28.2 pg (27.0-32.0); MCV 88.3 FL (80.0-97.0); Mean Platelet Volume 11.2 FL (9.5-12.2); Monocytes # (A) 0.73 X 10*3/uL (0.20-1.00); Monocytes % (A) 10.1 %; NRBC Per 100 WBC 0 X 10*3/uL (0.00-0.01); Neutrophils # (A) 3.54 X 10*3/uL (1.80-7.70); Neutrophils % (A) 49.1 %; Platelet Count 262 X 10*3/uL (140-440); RBC 3.86 X 10*6/uL (4.10-5.20); RDW 13.5 % (11.5-14.5); WBC 7.21 X 10*3/uL (4.50-10.00)
[2023-12-08 09:56] LABS: Blood Urea Nitrogen 14.4 mg/dL (9.0-27.0); Calcium 8.7 mg/dL (8.7-10.3); Carbon Dioxide 24.3 mmol/L (21.6-31.8); Chloride 112 mmol/L (96-109); Glucose 157 mg/dL (70-110); Potassium 3.4 mmol/L (3.5-5.5); Sodium 148 mmol/L (135-145)
[2023-12-08] MEDS ORDERED: Potassium Replacement Protocol 1 EACH MISC MISCELLANE PRN (10:47)
[2023-12-08] MEDS ORDERED: LORazepam 2 MG/ML INJ IV PRN (11:08)
[2023-12-08] MEDS: HALOPERIDOL LACTATE 5 MG/ML 1 ML VIAL IM PRN (11:29)
[2023-12-08] MEDS: LORazepam 2 MG/ML INJ IV STA (11:45)
[2023-12-08] MEDS: LORazepam 2 MG/ML INJ IM STA ×2 (11:47)
[2023-12-08] MEDS: POTASSIUM CHLORIDE ER 20 MEQ TAB.ER PO SCH (13:05)
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
[2023-12-08] MEDS: ACETAMINOPHEN TAB 325 MG TAB PO PRN (17:46)
[2023-12-09 10:33] LABS: HCT 35.5 % (37.2-46.3); HGB 11.5 g/dL (12.0-15.0); MCH 28.4 pg (27.0-32.0); MCHC 32.4 g/dL (32.0-37.0); MCV 87.7 FL (80.0-97.0); Mean Platelet Volume 10.5 FL (9.5-12.2); NRBC Per 100 WBC 0 X 10*3/uL (0.00-0.01); Platelet Count 265 X 10*3/uL (140-440); RBC 4.05 X 10*6/uL (4.10-5.20); RDW 13.4 % (11.5-14.5); WBC 6.53 X 10*3/uL (4.50-10.00)
[2023-12-09 10:56] LABS: BUN/Creat Ratio 23.17 Ratio (12.00-20.00); Blood Urea Nitrogen 13.9 mg/dL (9.0-27.0); Calcium 9.1 mg/dL (8.7-10.3); Carbon Dioxide 26.1 mmol/L (21.6-31.8); Chloride 111 mmol/L (96-109); Glucose 103 mg/dL (70-110); Potassium 4.3 mmol/L (3.5-5.5); Sodium 145 mmol/L (135-145)
[2023-12-09] MEDS: POTASSIUM CHLORIDE ER 20 MEQ TAB.ER PO STA (11:02)
[2023-12-09] MEDS ORDERED: OLANZapine 10 MG VIAL IM PRN (14:55)
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
[2023-12-09] MEDS: QUEtiapine 25 MG TAB PO SCH (20:39)
[2023-12-09] MEDS: DULoxetine HCL 60 MG CAPSULE.DR PO SCH (20:39)
[2023-12-09] MEDS: MELATONIN 5 MG TABLET PO PRN (22:39)
[2023-12-10] MEDS: LOPERAMIDE 2 MG CAP PO STA (16:25)
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
[2023-12-10] MEDS: QUEtiapine 25 MG TAB PO PRN (19:01)
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
[2023-12-11 13:23] VITALS: BP 128/68; PULSE 58; RESP 18; TEMP 97.8
== END 2023-12-11 14:50 | disposition home health service (06) | DRG 880 ==
LOC: EC 12:47 → OBSVTOIN 14:37 → 5NMEDONC 14:37
PROVIDERS: ADMIT Family Medicine; ATTEND Family Medicine
DX: R45.851 Suicidal ideations (principal); F03.911 Unspecified dementia, unspecified severity, with agitation; E87.1 Hypo-osmolality and hyponatremia; E03.9 Hypothyroidism, unspecified; E11.649 Type 2 diabetes mellitus with hypoglycemia without coma; E78.5 Hyperlipidemia, unspecified; I10 Essential (primary) hypertension; Z78.1 Physical restraint status; Z74.1 Need for assistance with personal care; E87.6 Hypokalemia; Z79.890 Hormone replacement therapy; F43.10 Post-traumatic stress disorder, unspecified; F40.240 Claustrophobia; Z79.82 Long term (current) use of aspirin; Z79.899 Other long term (current) drug therapy; Z90.710 Acquired absence of both cervix and uterus
CPT/HCPCS: 36415; 80048; 80053; 80306; 81003; 83036; 83735; 84443; 84484; 85025; 85027; 93005; 99285

== ENCOUNTER 2023-12-16 13:35 | Emergency (ER) | payer OTHER, MEDICARE ==
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
[2023-12-16 14:25] LABS: Appearance,Urine Clear (Clear); Bilirubin,Urine Negative (Negative); Blood,Urine Negative (Negative); Color,Urine Light Yellow; Glucose,Urine (UA) Negative (Negative); Hyaline Casts,Urine 12 /lpf (0-2); Ketones,Urine Negative (Negative); Leukocyte Esterase,Urine Small (Negative); Mucus,Urine Rare /hpf; Nitrite,Urine Negative (Negative); Protein,Urine Trace (Negative); RBC,Urine 1 /hpf (0-5); Squamous Epithelial Cell,Urine <1 /hpf (0-4); Urobilinogen,Urine <2.0 mg/dL (<2.0); WBC,Urine 4 /hpf (0-5)
[2023-12-16 14:26] LABS: Amphetamine Screen,Urine Not Detected (NotDetected); Barbiturate Screen,Urine Not Detected (NotDetected); Benzodiazepines Screen,Urine Not Detected (NotDetected); Cocaine Screen,Urine Not Detected (NotDetected); Methadone Screen, Urine Not Detected (NotDetected); Opiate Screen,Urine Not Detected (NotDetected); Oxycodone Screen, Urine Not Detected (NotDetected); Phencyclidine Screen,Urine Not Detected (NotDetected); Tricyclic Antidepressant,Urine Not Detected (NotDetected); Urn Cannabinoid Scrn Not Detected (NotDetected)
[2023-12-16 14:31] LABS: Basophils # (A) 0.1 k/uL (0-0.2); Basophils % (A) 1 %; Eosinophils # (A) 0.1 k/uL (0-0.7); Eosinophils % (A) 2 %; HCT 40.2 % (34.0-46.0); Lymphocytes # (A) 2.1 k/uL (1.0-4.8); Lymphocytes % (A) 23 %; MCH 28.3 pg (25.0-35.0); MCHC 32.3 g/dL (31.0-37.0); MCV 87.6 fL (80.0-100.0); Mean Platelet Volume 8.3; Monocytes # (A) 0.6 k/uL (0-1.0); Monocytes % (A) 6 %; Neutrophils # (A) 6.2 k/uL (1.3-7.7); Neutrophils % (A) 67 %; Platelet Count 269 k/uL (150-450); RBC 4.59 m/uL (3.80-5.40); RDW 13.4 % (11.5-15.5); WBC 9.3 k/uL (3.8-10.6)
[2023-12-16 14:40] LABS: ALT 25 U/L (4-34); AST 36 U/L (14-36); African American GFR (CKD) >90 (>60 ml/min/1.73 sqM); Albumin 4.1 g/dL (3.5-5.0); Alkaline Phosphatase 54 U/L (38-126); Anion Gap 8 mmol/L; Blood Urea Nitrogen 16 mg/dL (7-17); Calcium 9.3 mg/dL (8.4-10.2); Carbon Dioxide 25 mmol/L (22-30); Chloride 108 mmol/L (98-107); Glucose 96 mg/dL (74-99); Non-African American GFR(CKD) 86 (>60 ml/min/1.73 sqM); Potassium 3.8 mmol/L (3.5-5.1); Sodium 141 mmol/L (137-145); Total Bilirubin 0.7 mg/dL (0.2-1.3)
[2023-12-17] MEDS: HALOPERIDOL LACTATE 5 MG/ML 1 ML VIAL IM STA (10:52)
[2023-12-17] MEDS: IBUPROFEN 400 MG TAB PO STA (12:46)
[2023-12-17] MEDS: QUEtiapine 25 MG TAB PO SCH (22:25)
[2023-12-18] MEDS: LEVOTHYROXINE 50 MCG TAB PO SCH (06:59)
[2023-12-18 07:31] VITALS: BP 166/90; PULSE 98; RESP 16; TEMP 98
[2023-12-18] MEDS: DULoxetine HCL 60 MG CAPSULE.DR PO SCH (09:43)
[2023-12-18] MEDS: atenoloL 25 MG TAB PO SCH (09:43)
[2023-12-18] MEDS: DONEPEZIL 10 MG TAB PO SCH (09:43)
[2023-12-18] MEDS: IBUPROFEN 600 MG TAB PO STA (09:46)
[2023-12-18] MEDS: CHOLECALCIFEROL 25 MCG (1000 IU) TABLET PO SCH (09:49)
[2023-12-18] MEDS: ASPIRIN 81 MG PO SCH (09:49)
[2023-12-18] MEDS: IBUPROFEN 400 MG TAB PO STA ×2 (09:53→18:18)
[2023-12-18] MEDS: DOCUSATE 100 MG CAP PO STA (09:53)
[2023-12-18] MEDS: ZIPRASIDONE 20 MG VIAL IM STA (19:58)
== END 2023-12-18 20:00 ==
LOC: EC 13:35
DX: F23 Brief psychotic disorder (principal); F43.20 Adjustment disorder, unspecified; Z87.891 Personal history of nicotine dependence; Z88.8 Allergy status to other drugs, medicaments and biological substances; Z11.52 Encounter for screening for COVID-19
CPT/HCPCS: 82075; 36415; 80053; 85025; 81001; 80306; 87636; 99285; 96372; J3486